=== PATIENT | male | born 1960 | race Hispanic/Latino ===

== ENCOUNTER 2024-01-01 10:30 | Day surgery (SDC) | payer OTHER ==
[2023-12-29 08:48] LABS: Absolute Basophils 0.1 K/uL (0-0.5); Absolute Eosinophils 0.2 K/uL (0-0.5); Absolute Lymphocytes (CBC) 1.2 K/uL (0.7-4.9); Absolute Monocytes 0.7 K/uL (0.1-1.3); Absolute Neutrophil 4.5 K/uL (1.8-8.0); Eosinophils % 3.4 % (0-4.4); Hematocrit 38.1 % (39.6-49.0); Hemoglobin 12.7 g/dL (13.6-17.9); Lymphocytes % 18.2 % (15.3-44.8); MCH 33.5 pg (27.0-35.0); MCHC 33.4 g/dL (32.0-36.0); MCV 100.3 fL (80-100); MPV 8.9 fL (7.6-11.3); Monocytes % 10.4 % (3.3-12.3); Platelets 223 thou/uL (152-406); Red Cell Distribution Width 13.5 % (12.1-15.2)
[2023-12-29 08:52] LABS: PTT, Activated Partial Thromb 53.7 SECONDS (24.3-36.9); Protime INR 2.81
[2023-12-29 08:56] LABS: Anion Gap 7.9 mEq/L (5.0-15.0); Potassium 3.9 mEq/L (3.5-5.1)
[2024-01-01] MEDS ORDERED: NA CHLORIDE 0.9% 500 ML ONE (11:10)
[2024-01-01 11:25] VITALS: TEMP 97.8
[2024-01-01] MEDS ORDERED: MIDAZOLAM HCL 2 MG/2 ML INJ ONE (12:25)
[2024-01-01] MEDS ORDERED: HEPA 1000U/500MLS 2,000 UNIT/1,000 ML BAG IV ONE (12:25)
[2024-01-01] MEDS ORDERED: VERAPAMIL HCL 10 MG/4 ML VIAL IV ONE (12:25)
[2024-01-01] MEDS ORDERED: FENTANYL CITR 100 MCG/2 ML ONE (12:25)
[2024-01-01] MEDS ORDERED: LIDOCAINE 1% 20 ML MDV ONE (12:25)
[2024-01-01] MEDS ORDERED: ATROPINE SULF 1 MG/10 ML SYR IV ONE (12:26)
[2024-01-01] MEDS ORDERED: CLOPIDOGREL 75 MG TABLET ONE (12:26)
[2024-01-01] MEDS ORDERED: TICAGRELOR 90 MG TABLET PO ONE (12:26)
[2024-01-01] MEDS ORDERED: HEPARIN 10,000 UNIT/10 ML VIAL IV ONE (12:26)
[2024-01-01] MEDS ORDERED: HEPARIN 5000 UNIT/ML 1 ML VIAL ONE (12:26)
[2024-01-01] MEDS ORDERED: ASPIRIN 325 MG TAB ONE (12:27)
[2024-01-01] MEDS ORDERED: NALOXONE 0.4 MG/ML VIAL ONE (12:27)
[2024-01-01] MEDS ORDERED: FLUMAZENIL 0.1 MG/ML (5 mL VIAL) IV ONE (12:27)
--- NOTE | 2024-01-01 15:05 | EKG ---
Test Date: 2023-12-29 Test Time: 08:26:34 Premium Note Interest Calculator Clerk: SHAMIKA MEASUREMENT RESULTS: Intervals: Rate: 68 VT: 164 QRSD: 84 QT: 392 QTc: 416 Lester: P: 79 VT: 164 QRS: 53 T: 74 INTERPRETIVE STATEMENTS: Normal sinus rhythm Normal ECG Compared to ECG 11/30/2023 10:37:59 No significant changes Electronically Signed On 01-01-24 14:54:54 CDT by Charli Fletcher
[2024-01-01 17:27] VITALS: BP 142/70; O2SAT 98
--- NOTE | 2024-01-01 20:56 | OP ---
Date of Procedure: 01/01/2024 Surgeon: NEELIMA URBINA Procedures Performed: 1.Left subclavian angiogram. 2.Balloon angioplasty followed by stent placement. I placed initially a 7 x 19 mm stent but migrate d distally, so postdilated it using an 8 x 18 mm balloon and then placed an 8 x 29 mm stent at the ar ea of stenosis with excellent expansion and no complications. Indication: Severe left subclavian stenosis. Access: Right common femoral artery 6-Italian closed with 6-Italian Angio-Seal. Complications: None. Bleeding: Less than 50 mL. Anesthesia: Total sedation time was 1 hour and 15 minutes. Used fentanyl and Versed. Description Of Procedure: After risks, benefits, and alternatives were explained, the patient agreed to the procedure and signed informed consent. The patient was brought into cardiac catheterization laboratory, prepped and draped in usual sterile fashion. Then, I accessed right common femoral arter y using micropuncture kit, ultrasound guidance, and fluoroscopy, placed a 6-Italian [place] sheath. Then, I took an YULY guide and engaged the left subclavian, took standard views and then sent a [place] [employer] wire through it through the area of stenosis into the axillary artery and then exchanged fo r a 6-Italian destination sheath 90 cm and then I took a 7 mm x 40 and did balloon angioplasty. Lesio n expanded very well and then I placed 7 x 19 mm balloon stent, excellent expansion, however, it appe ared to be smaller than the vessel distally, so I decided to go with 8 mm balloon to post dilate. Ho wever, the balloon pushed the stent distally, so the area of stenosis was uncovered, so I placed anot her 8 x 29 mm stent and then I took an 8 x 18 mm balloon and post dilated both stents to a stable con dition. Final angiogram was satisfactory. No complications. Then, I removed the wire and the sheat h and placed a 6-Italian Angio-Seal for closure with good hemostasis. Findings: Severe left subclavian stenosis 90%, status post successful balloon angioplasty and stent placement as above. Plan: Aspirin and Plavix. SR/MODL Voice ID: [id number] Report ID: [id number]
== END 2024-01-01 17:55 | disposition home or self-care (01) ==
LOC: CCL 10:30
PROVIDERS: ATTEND Internal Medicine
DX: I70.8 Atherosclerosis of other arteries (principal); I35.9 Nonrheumatic aortic valve disorder, unspecified; I10 Essential (primary) hypertension; E78.2 Mixed hyperlipidemia; B19.20 Unspecified viral hepatitis C without hepatic coma; Z87.891 Personal history of nicotine dependence; Z79.899 Other long term (current) drug therapy
CPT/HCPCS: 93005; 85025; 80048; 36415; 85610; 85347 ×3; 85730; 37236; 36225; C1893; C1760; G0269; C1725; C1769; J1644; J2001; J2250; J3010; J7040; 99152; 99153; J0461; J2310

== ENCOUNTER 2024-03-31 18:42 | Emergency (ER) | payer OTHER ==
--- OUTSIDE RECORDS SUMMARY | 2024-03-31 18:46 | XMS REPORT | Continuity of Care Document ---
Author Name Unknown Address [address] [facility] [address] [place] [address] [facility] thconnect Address [address] [facility]. [address] [place] [address] Care Team Providers Care Cushion Mat Maker Name Role Phone TUSHAR VILMA M Primary Care Physician Unavailab Vilma Wang Attending Clinician Unavailable TYRON BATISTA Attending Clinician Unavailable BARTOLO HORTON Attending Clinician Unavailable BARTOLO HORTON Attending Clinician Unavailable Tyron Batista MD Attending Clinician [phone] Pob, [facility] Main Attending Clinician Unavailabl e Doctor Unassigned, Chambers Attending Clinician U navailable 2, [facility] Attending Clinician Unavailable Charli Fletcher Attending Clinician Unavailable Radiology Attending Clinician Unavailable RADIOLOGY Attending Clinician Unavailable Betsy Fonseca MD Attending Clinician [phone] BETSY FONSECA Attending Clinician Unavailable El Whelan MD Attending Clinician [phone] TYRON BATISTA Admitting Clinician Unavailable BARTOLO HORTON Admitting Clinician Unavailable Wing Adame Admitting Clinician Unavailable Payers Payer Name Policy Type Policy Number Effective Date Expirati on Date Source [facility] [employer]DS [id number] 2021 00:00:00 Problems Condition Name Condition Details Condition Category Status Onset Date Resolution Date Last Treatment Date Treating Clinician Comments Source 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 Disease Active 3- 00:00: 00 [facility] GI bleed GI bleed Disease Active 07-24 00:00: 00 [facility] Essential hypertensi on Essential hypertensi on Disease Active 2014-07 00:00: 00 [facility] Chest pain at rest Chest pain at rest Disease Active 2014-07 00:00: 00 [facility] History of depression History of depression Disease Active 2014-07 00:00: 00 [facility] Anticoagul ated on Coumadin Anticoagul ated on Coumadin Disease Active 2014-07 00:00: 00 [facility] Bilateral pleural effusion Bilateral pleural effusion Disease Active 2014-07 00:00: 00 [facility] Pericardia l effusion without cardiac tamponade Pericardia l effusion without cardiac tamponade Disease Active 2014-07 00:00: 00 [facility] S/P AVR (aortic valve replacemen t wt [facility] 21mm [place] mechanical prosthesis ) S/P AVR (aortic valve replacemen t [facility] 21mm [place] mechanical prosthesis ) Disease Active 2014-07 00:00: 00 Overview: Formattin g of this note might be different from the original. For h.o. Severe aortic stenosis [facility] Allergies, Adverse Reactions, Alerts Allergy Name Allergy Type Status Severity Reaction(s) Onset Date Inactive Date Treating Clinician Comments Source No Known Allergie s DA Active U 2022-07 00:00: 00 [facility] No Known Allergie s DA Active U 02-12 00:00: 00 [facility] NO KNOWN ALLERGIE S Drug Class Active [facility] Social History Social Habit Start Date Stop Date Quantity Comments Source [facility] of tobacco use Cigarette Smoker [facility] Alcoholic beverage intake 2023-12-06 00:00:00 2023-12-06 00:00:00 3 /d [facility] Cigarettes smoked current (pack per day) - Reported 2023-10-12 00:00:00 2023-10-12 00:00:00 [facility] Cigarette pack-years 2023-10-12 00:00:00 2023-10-12 00:00:00 [facility] Tobacco use and exposure 2023-10-12 00:00:00 2023-10-12 00:00:00 Smokeless tobacco non-user [facility] History of Social function 2023-10-10 00:00:00 2023-10-10 00:00:00 [facility] Alcohol intake 2023-10-10 00:00:00 2023-10-10 00:00:00 3 /d [facility] Exposure to SARS-CoV-2 (event) 2022-04-24 00:00:00 2022-05-04 14:52:00 Not sure [facility] Sex assigned at 1960 00:00:00 1960 00:00:00 [facility] Smoking Status Start Date Stop Date Source Tobacco smoking consumption unknown [facility] Ex-smoker 2023-10-12 00:00:00 2023-10-12 00:00:00 [facility] Smokes tobacco daily 2023-09-05 00:00:00 [facility] Medications Ordered Medication Name Filled Medication Name Start Date Stop Date Current Medication? Ordering Clinician Indication Dosage Frequency Signature (SIG) Comments Components Source amLODIPine 5 mg tablet 10-11 12:34: 39 Yes 5mg Take 1 tablet by mouth in the morning. [facility] tramadol HCl (TRAMADOL ORAL) 10-11 12:34: 39 Yes 50mg Take 50 mg by mouth as needed. [facility] atorvastati n 20 mg tablet 10-11 12:34: 39 Yes 20mg Take 1 tablet by mouth at bedtime. [facility] buPROPion XL 300 mg 24 hr tablet 10-11 12:34: 39 Yes 300mg Take 1 tablet by mouth in the morning. [facility] carvediloL 6.25 mg tablet 10-11 12:34: 39 Yes 6.25mg Take 1 tablet by mouth in the morning and 1 tablet in the evening. Take with meals. [facility] valACYclovi r 500 mg tablet 10-11 12:34: 39 Yes 500mg Take 1 tablet by mouth in the morning. [facility] NaCl 0.9% (NS) injection 6 mL 10-09 15:30: 00 10-09 17:59 :00 No [id number] 6mL [facility] alprostadiL (EDEX) injection 25 mcg 10-09 15:30: 10-09 18:01 :00 No [id number] 25ug [facility] phenylephri ne (VAZCULEP) injection 0.3 mg 10-09 15:30: 10-09 17:59 :00 No [id number] .3mg [facility] phenylephri ne (VAZCULEP) injection 0.3 mg 10-09 15:30: 00 10-09 17:59 :00 No [id number] 300ug 0.3 mg (300 mcg), Intravenou s, ONCE, 1 dose, On Mon10/10/23 at 1030, Routine [facility] iopamidol (ISOVUE 370-500 mL) injection 120 mL 10-01 15:18: 10-01 15:18 :00 No [id number] 120mL 120 mL, Intravenou s, ONCE, 1 dose, On Mon10/02/23 at 1045, Routine [facility] buPROPion XL 300 mg 24 hr tablet 09-25 14:56: 15 Yes 300mg Take 1 tablet by mouth in the morning. [facility] carvediloL 6.25 mg tablet 09-25 14:56: 15 Yes 6.25mg Take 1 tablet by mouth in the morning and 1 tablet in the evening. Take with meals. [facility] valACYclovi r 500 mg tablet 09-25 14:56: 15 Yes 500mg Take 1 tablet by mouth in the morning. [facility] atorvastati n 20 mg tablet 09-25 14:53: 32 Yes 20mg Take 1 tablet by mouth at bedtime. [facility] HYDROcodone -acetaminop hen (NORCO) 10-325 mg tablet 09-25 14:52: 47 09-25 00:00 :00 No 1{tbl} Take 1 Tab by mouth every 6 (six) hours as needed. [facility] ALPRAZolam (XANAX) 2 mg tablet 09-25 14:52: 19 09-25 00:00 :00 No 2mg Take 2 mg by mouth 4 (four) times daily as needed for Anxiety. [facility] iopamidol (ISOVUE 370-500 mL) injection 100 mL 2021-07 17:15: 00 05-09 16:04 :00 No [id number] 100mL 100 mL, Intravenou s, ONCE, 1 dose, On Mon05/09/22 at 1215, Routine [facility] ALPRAZolam (XANAX) 2 mg tablet 2021-07 13:32: 33 Yes 2mg Take 2 mg by mouth 4 (four) times daily as needed for Anxiety. [facility] HYDROcodone -acetaminop hen (NORCO) 10-325 mg tablet 2021-07 13:32: 33 Yes 1{tbl} Take 1 Tab by mouth every 6 (six) hours as needed. [facility] amLODIPine 5 mg tablet 2021-07 13:32: 33 Yes 5mg Take 1 tablet by mouth in the morning. [facility] tramadol HCl (TRAMADOL ORAL) 2021-07 13:32: 33 Yes 50mg Take 50 mg by mouth as needed. [facility] atorvastati n 20 mg tablet 2021-07 13:32: 33 Yes 20mg Take 1 tablet by mouth at bedtime. [facility] LOSARTAN 50 mg tablet 918 00:00: 00 09-25 00:00 :00 No [id number] TAKE 1 TABLET BY MOUTH EVERY DAY [facility] warfarin 5 mg tablet 02-15 00:00: 00 Yes [id number] 00 5mg on Mon. Mon. Sat. Sun. 2.5mg on Mon [facility] warfarin 5 mg tablet 01-30 00:00: 00 02-15 00:00 :00 No [id number] 00 5mg Take 1 tablet by mouth every evening. [facility] VENLAFAXINE XR 150 mg 24 hr capsule 12-03 00:00: 00 09-25 00:00 :00 No [id number] 150mg TAKE 1 CAPSULE BY MOUTH DAILY WITH BREAKFAST. [facility] sildenafil (VIAGRA) 50 mg tablet 11-14 00:00: 00 Yes [id number] 50mg Take 1 tablet by mouth as needed for Other (ed). [facility] cephALEXin 500 mg capsule 11-14 00:00: 00 09-25 00:00 :00 No [id number] 500mg Take 1 capsule by mouth 3 (three) times daily. [facility] ALPRAZolam (XANAX) 2 mg tablet 10-29 19:45: 36 Yes 2mg Take 2 mg by mouth 4 (four) times daily as needed for Anxiety. [facility] HYDROcodone -acetaminop hen (NORCO) 10-325 mg tablet 10-29 19:45: 36 Yes 1{tbl} Take 1 Tab by mouth every 6 (six) hours as needed. [facility] ALPRAZolam (XANAX) 2 mg tablet 10-29 14:45: 36 Yes 2mg Take 2 mg by mouth 4 (four) times daily as needed for Anxiety. [facility] HYDROcodone -acetaminop hen (NORCO) 10-325 mg tablet 10-29 14:45: 36 Yes 1{tbl} Take 1 Tab by mouth every 6 (six) hours as needed. [facility] ARIPiprazol e 2 mg tablet 10-29 00:00: 00 09-25 00:00 :00 No [id number] 2mg Take 1 tablet by mouth daily. [facility] traZODONE 50 mg tablet 10-29 00:00: 00 09-25 00:00 :00 No [id number] 50mg Take 1 tablet by mouth at bedtime. [facility] losartan 50 mg tablet 10-05 00:00: 00 04-02 00:00 :00 No [id number] 50mg Take 1 tablet by mouth daily. [facility] aspirin 81 mg EC tablet 03-10 00:00: 00 Yes 81mg Take 1 Tab by mouth daily. [facility] Immunizations Ordered Immunization Name Filled Immunization Name Date Status Comments Source Pneumococcal Polysaccharide, PPSV23 (PNEUMOVAX) 2015-03-10 00:00:00 Completed [facility] Pneumococcal Polysaccharide, PPSV23 (PNEUMOVAX) 2015-03-10 00:00:00 Completed [facility] Pneumococcal Polysaccharide, PPSV23 (PNEUMOVAX) 2015-03-10 00:00:00 Completed [facility] Pneumococcal Polysaccharide, PPSV23 (PNEUMOVAX) 2015-03-10 00:00:00 Completed [facility] Pneumococcal Polysaccharide, PPSV23 (PNEUMOVAX) 2015-03-10 00:00:00 Completed [facility] Pneumococcal Polysaccharide, PPSV23 (PNEUMOVAX) 2015-03-10 00:00:00 Completed [facility] Pneumococcal Polysaccharide, PPSV23 (PNEUMOVAX) 2015-03-10 00:00:00 Completed [facility] Pneumococcal Polysaccharide, PPSV23 (PNEUMOVAX) 2015-03-10 00:00:00 Completed [facility] Pneumococcal Polysaccharide, PPSV23 (PNEUMOVAX) 2015-03-10 00:00:00 Completed [facility] Pneumococcal Polysaccharide, PPSV23 (PNEUMOVAX) Unknown Completed [facility] Pneumococcal Polysaccharide, PPSV23 (PNEUMOVAX) Unknown Completed [facility] Pneumococcal Polysaccharide, PPSV23 (PNEUMOVAX) Unknown Completed [facility] Pneumococcal Polysaccharide, PPSV23 (PNEUMOVAX) Unknown Completed [facility] Pneumococcal Polysaccharide, PPSV23 (PNEUMOVAX) Unknown Completed [facility] Pneumococcal Polysaccharide, PPSV23 (PNEUMOVAX) Unknown Completed [facility] Pneumococcal Polysaccharide, PPSV23 (PNEUMOVAX) Unknown Completed [facility] Pneumococcal Polysaccharide, PPSV23 (PNEUMOVAX) Unknown Completed [facility] Pneumococcal Polysaccharide, PPSV23 (PNEUMOVAX) Unknown Completed [facility] Pneumococcal Polysaccharide, PPSV23 (PNEUMOVAX) Unknown Completed [facility] Pneumococcal Polysaccharide, PPSV23 (PNEUMOVAX) Unknown Completed [facility] Pneumococcal Polysaccharide, PPSV23 (PNEUMOVAX) Unknown Completed [facility] Pneumococcal Polysaccharide, PPSV23 (PNEUMOVAX) Unknown Completed [facility] Pneumococcal Polysaccharide, PPSV23 (PNEUMOVAX) Unknown Completed [facility] Pneumococcal Polysaccharide, PPSV23 (PNEUMOVAX) Unknown Completed [facility] Pneumococcal Polysaccharide, PPSV23 (PNEUMOVAX) Unknown Completed [facility] Pneumococcal Polysaccharide, PPSV23 (PNEUMOVAX) Unknown Completed [facility] Pneumococcal Polysaccharide, PPSV23 (PNEUMOVAX) Unknown Completed [facility] Pneumococcal Polysaccharide, PPSV23 (PNEUMOVAX) Unknown Completed [facility] Pneumococcal Polysaccharide, PPSV23 (PNEUMOVAX) Unknown Completed [facility] Pneumococcal Polysaccharide, PPSV23 (PNEUMOVAX) Unknown Completed [facility] Pneumococcal Polysaccharide, PPSV23 (PNEUMOVAX) Unknown Completed [facility] Pneumococcal Polysaccharide, PPSV23 (PNEUMOVAX) Unknown Completed [facility] Pneumococcal Polysaccharide, PPSV23 (PNEUMOVAX) Unknown Completed [facility] Pneumococcal Polysaccharide, PPSV23 (PNEUMOVAX) Unknown Completed [facility] Pneumococcal Polysaccharide, PPSV23 (PNEUMOVAX) Unknown Completed [facility] Pneumococcal Polysaccharide, PPSV23 (PNEUMOVAX) Unknown Completed [facility] Pneumococcal Polysaccharide, PPSV23 (PNEUMOVAX) Unknown Completed [facility] Pneumococcal Polysaccharide, PPSV23 (PNEUMOVAX) Unknown Completed [facility] Pneumococcal Polysaccharide, PPSV23 (PNEUMOVAX) Unknown Completed [facility] Pneumococcal Polysaccharide, PPSV23 (PNEUMOVAX) Unknown Completed [facility] Pneumococcal Polysaccharide, PPSV23 (PNEUMOVAX) Unknown Completed [facility] Pneumococcal Polysaccharide, PPSV23 (PNEUMOVAX) Unknown Completed [facility] Pneumococcal Polysaccharide, PPSV23 (PNEUMOVAX) Unknown Completed [facility] Pneumococcal Polysaccharide, PPSV23 (PNEUMOVAX) Unknown Completed [facility] Pneumococcal Polysaccharide, PPSV23 (PNEUMOVAX) Unknown Completed [facility] Pneumococcal Polysaccharide, PPSV23 (PNEUMOVAX) Unknown Completed [facility] Pneumococcal Polysaccharide, PPSV23 (PNEUMOVAX) Unknown Completed [facility] Pneumococcal Polysaccharide, PPSV23 (PNEUMOVAX) Unknown Completed [facility] Pneumococcal Polysaccharide, PPSV23 (PNEUMOVAX) Unknown Completed [facility] Pneumococcal Polysaccharide, PPSV23 (PNEUMOVAX) Unknown Completed [facility] Pneumococcal Polysaccharide, PPSV23 (PNEUMOVAX) Unknown Completed [facility] Pneumococcal Polysaccharide, PPSV23 (PNEUMOVAX) Unknown Completed [facility] Vital Signs Vital Name Observation Time Observation Value Comments S ource Systolic blood pressure 2023-12-06 15:10:00 156 mm[Hg] [facility] Diastolic blood pressure 2023-12-06 15:10:00 75 mm[Hg] [facility] Heart rate 2023-12-06 15:10:00 75 /min [facility] Respiratory rate 2023-12-06 15:10:00 18 /min [facility] Body height 2023-12-06 15:10:00 167.6 cm [facility] Body weight 2023-12-06 15:10:00 69.854 kg [facility] BMI 2023-12-06 15:10:00 24.86 kg/m2 [facility] Oxygen saturation in Arterial blood by Pulse oximetry 2023-12-06 15:10:00 97 /min [facility] Systolic blood pressure 2023-10-10 15:28:00 137 mm[Hg] [facility] Diastolic blood pressure 2023-10-10 15:28:00 79 mm[Hg] [facility] Heart rate 2023-10-10 15:28:00 71 /min [facility] Body height 2023-10-10 14:18:00 167.6 cm [facility] Body weight 2023-10-10 14:18:00 67.268 kg [facility] BMI 2023-10-10 14:18:00 23.94 kg/m2 [facility] Oxygen saturation in Arterial blood by Pulse oximetry 2023-10-10 14:18:00 98 /min [facility] Systolic blood pressure 2023-09-26 19:51:00 139 mm[Hg] [facility] Diastolic blood pressure 2023-09-26 19:51:00 83 mm[Hg] [facility] Heart rate 2023-09-26 19:51:00 68 /min [facility] Respiratory rate 2023-09-26 19:51:00 18 /min [facility] Body height 2023-09-26 19:51:00 167.6 cm [facility] Body weight 2023-09-26 19:51:00 67.586 kg [facility] BMI 2023-09-26 19:51:00 24.05 kg/m2 [facility] Oxygen saturation in Arterial blood by Pulse oximetry 2023-09-26 19:51:00 96 /min [facility] Systolic blood pressure 2023-09-05 15:25:00 116 mm[Hg] [facility] Diastolic blood pressure 2023-09-05 15:25:00 75 mm[Hg] [facility] Heart rate 2023-09-05 15:25:00 86 /min [facility] Body temperature 2023-09-05 15:25:00 37.44 Cinda [facility] Body height 2023-09-05 15:25:00 165.1 cm [facility] Body weight 2023-09-05 15:25:00 68.992 kg [facility] BMI 2023-09-05 15:25:00 25.31 kg/m2 [facility] Oxygen saturation in Arterial blood by Pulse oximetry 2023-09-05 15:25:00 97 /min [facility] Systolic blood pressure 2022-05-04 18:34:00 125 mm[Hg] [facility] Diastolic blood pressure 2022-05-04 18:34:00 76 mm[Hg] [facility] Heart rate 2022-05-04 18:34:00 73 /min [facility] Body temperature 2022-05-04 18:34:00 37.06 [facility] Respiratory rate 2022-05-04 18:34:00 18 /min [facility] Body height 2022-05-04 18:34:00 167.6 cm [facility] Body weight 2022-05-04 18:34:00 68.947 kg [facility] BMI 2022-05-04 18:34:00 24.53 kg/m2 [facility] Oxygen saturation in Arterial blood by Pulse oximetry 2022-05-04 18:34:00 96 /min [facility] Procedures Procedure Date / Time Performed Performing Clinician Source POCT URINALYSIS AUTO 2023-12-06 15:17:00 Bell Batista [facility] NOTICE OF PRIVACY PRACTICES 2023-10-02 14:27:29 Doctor Unassigned, Chambers [facility] CONSENT/REFUSAL FOR DIAGNOSIS AND TREATMENT 2023-10-02 14:27:12 Doctor Unassigned, Chambers [facility] ASSIGNMENT OF BENEFITS 2023-10-02 14:26:58 Docto r Unassigned, Chambers [facility] DISCLOSURE AND CONSENT, MEDICAL AND SURGICAL PROCEDURES 2023-09-28 05:01:00 Doctor Unassigned, Chambers [facility] POCT URINALYSIS AUTO 2023-09-26 19:58:00 Bell Batista [facility] POCT URINALYSIS 2023-09-05 15:39:00 Tyron Batista [facility] CONSENT/REFUSAL FOR DIAGNOSIS AND TREATMENT 2023-09-05 15:11:00 Doctor Unassigned, Chambers [facility] MARIA G,POST-VOID RES,US,NON-IMAGING 2023-09-05 00:00:00 Tyron Batista [facility] ASSIGNMENT OF BENEFITS 2022-05-09 15:18:12 Docto r Unassigned, Chambers [facility] CONSENT/REFUSAL FOR DIAGNOSIS AND TREATMENT 2022-05-09 15:17:55 Doctor Unassigned, Chambers [facility] EXTERNAL PROVIDER - ADC REFERRAL 2022-03-31 05:01:00 Doctor Unassigned, Chambers [facility] PATIENT QUESTIONNAIRE 2019-02-19 05:01:00 Doctor Unassigned, Chambers [facility] Encounters Start Date/Time End Date/Time Encounter Type Admission Type Attending [facility] Care Facility Care Department Encounter ID Source 2024-02-23 14:37:00 [id number] [facility] 2023-10-12 15:42:33 Outpatient R TYRON BATISTA [facility] [id number] [facility] 2022-10-28 09:31:03 Outpatient Vilma Mcbride [facility] [id number] [facility] 2023-12-06 10:00:00 2023-12-06 10:15:00 [facility] [id number] [id number] [id number] [facility] 2023-12-06 10:00:00 2023-12-06 10:00:00 Outpatient R TYRON BATISTA [facility] [id number] [facility] 2023-11-02 00:00:00 2023-11-02 00:00:00 Telephone Alzweri, [facility] [id number] [id number] [facility] 2023-10-19 00:00:00 2023-10-19 00:00:00 [facility] [id number] 350.1.13.10 [id number] [id number] [facility] 2023-10-16 10:58:12 2023-10-16 23:59:00 [id number] 2023-10-16 10:58:12 2023-10-16 23:59:00 Hospital Encounter [facility] [id number] 350.1.13.10 [id number] [id number] [facility] 2023-10-16 12:15:00 2023-10-16 12:30:00 As400 Consultant Visit Pob, [facility] Main Jonathan [facility] [id number] 350.1.13.10 [id number] [id number] [facility] 2023-10-16 12:15:00 2023-10-16 12:15:00 Outpatient R JONATHAN [facility] [id number] [facility] 2023-10-16 00:00:00 2023-10-16 00:00:00 Telephone Jonathan [facility] [id number] 350.1.13.10 [id number] [id number] [facility] 2023-10-11 15:00:00 2023-10-11 15:01:09 [facility] [id number] 2023-10-11 15:00:00 2023-10-11 15:01:09 Office Visit Bartolo Horton [facility] [id number] 350.1.13.10 [id number] [id number] [facility] 2023-10-10 09:30:00 2023-10-10 11:16:40 Outpatient R JONATHAN [facility] [id number] [facility] 2023-10-10 09:30:00 2023-10-10 11:16:40 Office Visit Jonathan [facility] [id number] 350.1.13.10 [id number] [id number] [facility] 2023-10-10 00:00:00 2023-10-10 00:00:00 Telephone Jonathan [facility] [id number] 350.1.13.10 [id number] [id number] [facility] 2023-10-02 09:27:54 2023-10-02 23:59:00 Outpatient R JONATHAN [facility] [id number] [facility] 2023-10-02 09:27:54 2023-10-02 23:59:00 Hospital Encounter Jonathan [facility] [id number] 350.1.13.10 [id number] [id number] [facility] 2023-09-28 00:00:00 2023-09-28 00:00:00 Orders Only Doctor Unassigned, Chambers [facility] 1.2.840.114 350.1.13.10 4.2.7.2.686 [id number] [id number] [facility] 2023-09-28 00:00:00 2023-09-28 00:00:00 Telephone Jonathan [facility] 1.2.840.114 350.1.13.10 4.2.7.2.686 [id number] [facility] 2023-09-26 15:30:00 2023-09-26 16:00:54 Outpatient R [facility]ON[facility]AN [facility] [id number] [facility] 2023-09-26 15:30:00 2023-09-26 16:00:54 Office Visit Jonathan [facility] 1.2.840.114 350.1.13.10 4.2.7.2.686 [id number] [facility] 2023-09-18 00:00:00 2023-09-18 00:00:00 Telephone Jonathan [facility] 1.2.840.114 350.1.13.10 4.2.7.2.686 [id number] [facility] 2023-09-15 11:45:00 2023-09-15 12:00:00 As400 Consultant Visit 2, Adc Lab Jonathan [facility] 1.2.840.114 350.1.13.10 4.2.7.2.686 [id number] [facility] 2023-09-15 11:45:00 2023-09-15 11:45:00 Outpatient R [facility] [id number] [facility] 2023-09-08 00:00:00 2023-09-08 00:00:00 [facility] 1.2.840.114 350.1.13.10 4.2.7.2.686 [id number] [facility] 2023-09-05 09:30:00 2023-09-05 10:09:47 Outpatient R TYRON BATISTA [facility] [id number] [facility] 2023-09-05 09:30:00 2023-09-05 10:09:47 Office Visit Tyron Batista [facility] 1..114 350.1.13.10 4.2.7.2.686 [id number] [facility] 2023-09-05 00:00:00 2023-09-05 00:00:00 Orders Only Doctor Unassigned, Chambers [facility] 1..114 350.1.13.10 4.2.7.2.686 [id number] [facility] 2023-04-17 08:00:00 2023-04-17 09:00:00 Outpatient Charli Fitzpatrick [facility] [id number] [facility] 2022-05-09 10:21:20 2022-05-09 23:59:00 Hospital Encounter Radiology [facility] 1..114 350.1.13.10 4.2.7.2.686 [id number] [facility] 2022-05-09 10:20:53 2022-05-09 10:20:53 Outpatient R RADIOLOGY [facility] [id number] [facility] 2022-05-09 10:20:53 2022-05-09 10:20:53 Hospital Encounter Radiology [facility] 1.0.114 350.1.13.10 4.2.7.2.686 [id number] [facility] 2022-05-04 13:20:00 2022-05-04 13:40:00 Office Visit Betsy Fonseca [facility] 1..114 350.1.13.10 4.2.7.2.686 [id number] [facility] 2022-05-04 13:20:00 2022-05-04 13:20:00 [facility] [id number] [facility] 2022-03-31 00:00:00 2022-03-31 00:00:00 Orders Only Doctor Unassigned, Chambers [facility] 1.0.114 350.1.13.10 4.2.7.2.686 [id number] [facility] 2022-03-30 10:00:00 2022-03-30 10:00:00 [facility] [id number] [facility] 2019-04-02 00:00:00 2019-04-02 00:00:00 [facility] 1..114 350.1.13.10 4.2.7.2.686 [id number] [facility] 2019-03-01 00:00:00 2019-03-01 00:00:00 [facility] 1.840.114 350.1.13.10 4.2.7.2.686 [id number] [facility] 2019-02-19 00:00:00 2019-02-19 00:00:00 Orders Only Doctor Unassigned, Chambers [facility] 1.0.114 350.1.13.10 4.2.7.2.686 [id number] [facility] 2019-02-15 00:00:00 2019-02-15 00:00:00 [facility] 1.2840.114 350.1.13.10 4.2.7.2.686 [id number] [facility] Results Test Description Test Time Test Comments Results Result Co mments Source [facility], [id number] 15:18:00 * Test Item Value Reference Range Interpretation Comme nts POCT U SP GRAV (test code = 3255) 1.020 mg/dl 1.005-1.025 POCT PH U (test code = 3254) 6.0 mg/dl 5-8 POCT U LEUK EST (test code = 3263) negative Negative - Negative POCT U NIT (test code = 3262) negative Negative - Negati ve POCT U PROT (test code = 3259) negative Negative - Negative POCT U GLU (test code = 3256) negative Negative - Negati ve POCT U KETONE (test code = 3258) trace Negative - Negative POCT U UROBILI (test code = 3260) 0.2 mg/dl 0.2-1 POCT U BILI (test code = 3261) negative Negative - Negative POCT U BLD (test code = 3257) small Negative - Negati ve POCT U COLOR (test code = 3266) POCT U APPEAR (test code = 3267) [facility] Urinal[facility], [id number] 19:58:00 * Test Item Value Reference Range Interpretation Comme nts POCT U SP GRAV (test code = 3255) 1.020 mg/dl 1.005-1.025 POCT PH U (test code = 3254) 6.0 mg/dl 5-8 POCT U LEUK EST (test code = 3263) negative Negative - Negative POCT U NIT (test code = 3262) negative Negative - Negati ve POCT U PROT (test code = 3259) negative Negative - Negative POCT U GLU (test code = 3256) negative Negative - Negati ve POCT U KETONE (test code = 3258) negative Negative - Negative POCT U UROBILI (test code = 3260) 0.2 mg/dl 0.2-1 POCT U BILI (test code = 3261) negative Negative - Negative POCT U BLD (test code = 3257) moderate Negative - Negati ve POCT U COLOR (test code = 3266) yellow POCT U APPEAR (test code = 3267) clear [facility], [id number] 19:58:00 * Test Item Value Reference Range Interpretation Comme nts POCT U SP GRAV (test code = 3255) 1.020 mg/dl 1.005-1.025 POCT PH U (test code = 3254) 6.0 mg/dl 5-8 POCT U LEUK EST (test code = 3263) negative Negative - Negative POCT U NIT (test code = 3262) negative Negative - Negati ve POCT U PROT (test code = 3259) negative Negative - Negative POCT U GLU (test code = 3256) negative Negative - Negati ve POCT U KETONE (test code = 3258) negative Negative - Negative POCT U UROBILI (test code = 3260) 0.2 mg/dl 0.2-1 POCT U BILI (test code = 3261) negative Negative - Negative POCT U BLD (test code = 3257) moderate Negative - Negati ve POCT U COLOR (test code = 3266) yellow POCT U APPEAR (test code = 3267) clear [facility] Urinalysis W Specific [id number] 15:40:00* Test Item Value Reference Range Interpretation Comme nts POCT U SP GRAV (test code = 3255) 1.020 mg/dl 1.005-1.025 POCT PH U (test code = 3254) 5.5 mg/dl 5-8 POCT U LEUK EST (test code = 3263) negative Negative - Negative POCT U NIT (test code = 3262) negative Negative - Negati ve POCT U PROT (test code = 3259) negative Negative - Negative POCT U GLU (test code = 3256) negative Negative - Negati ve POCT U KETONE (test code = 3258) negative Negative - Negative POCT U UROBILI (test code = 3260) 0.2 mg/dl 0.2-1 POCT U BILI (test code = 3261) negative Negative - Negative POCT U BLD (test code = 3257) small Negative - Negati ve POCT U COLOR (test code = 3266) yellow POCT U APPEAR (test code = 3267) clear Lab Interpretation (test cod e = 85775-5) Abnormal [facility] Urinalysis W Specific [id number] 15:40:00* Test Item Value Reference Range Interpretation Comme nts POCT U SP GRAV (test code = 3255) 1.020 mg/dl 1.005-1.025 POCT PH U (test code = 3254) 5.5 mg/dl 5-8 POCT U LEUK EST (test code = 3263) negative Negative - Negative POCT U NIT (test code = 3262) negative Negative - Negati ve POCT U PROT (test code = 3259) negative Negative - Negative POCT U GLU (test code = 3256) negative Negative - Negati ve POCT U KETONE (test code = 3258) negative Negative - Negative POCT U UROBILI (test code = 3260) 0.2 mg/dl 0.2-1 POCT U BILI (test code = 3261) negative Negative - Negative POCT U BLD (test code = 3257) small Negative - Negati ve POCT U COLOR (test code = 3266) yellow POCT U APPEAR (test code = 3267) clear Lab Interpretation (test cod e = 06181-4) Abnormal [facility] Urinalysis W Specific [id number] 15:40:00* Test Item Value Reference Range Interpretation Comme nts POCT U SP GRAV (test code = 3255) 1.020 mg/dl 1.005-1.025 POCT PH U (test code = 3254) 5.5 mg/dl 5-8 POCT U LEUK EST (test code = 3263) negative Negative - Negative POCT U NIT (test code = 3262) negative Negative - Negati ve POCT U PROT (test code = 3259) negative Negative - Negative POCT U GLU (test code = 3256) negative Negative - Negati ve POCT U KETONE (test code = 3258) negative Negative - Negative POCT U UROBILI (test code = 3260) 0.2 mg/dl 0.2-1 POCT U BILI (test code = 3261) negative Negative - Negative POCT U BLD (test code = 3257) small Negative - Negati ve POCT U COLOR (test code = 3266) yellow POCT U APPEAR (test code = 3267) clear Lab Interpretation (test cod e = 50962-1) Abnormal [facility] Urinalysis W Specific [id number] 15:40:00* Test Item Value Reference Range Interpretation Comme nts POCT U SP GRAV (test code = 3255) 1.020 mg/dl 1.005-1.025 POCT PH U (test code = 3254) 5.5 mg/dl 5-8 POCT U LEUK EST (test code = 3263) negative Negative - Negative POCT U NIT (test code = 3262) negative Negative - Negati ve POCT U PROT (test code = 3259) negative Negative - Negative POCT U GLU (test code = 3256) negative Negative - Negati ve POCT U KETONE (test code = 3258) negative Negative - Negative POCT U UROBILI (test code = 3260) 0.2 mg/dl 0.2-1 POCT U BILI (test code = 3261) negative Negative - Negative POCT U BLD (test code = 3257) small Negative - Negati ve POCT U COLOR (test code = 3266) yellow POCT U APPEAR (test code = 3267) clear Lab Interpretation (test cod e = 41333-9) Abnormal [facility],POST-VOID RES,US,[id number] 00:00:00* Test Item Value Reference Range Interpretation Comme nts PVR (URINE VOLUME) (test code = 5193) 28 ml 0-100 [facility],POST-VOID RES,US,[id number] 00:00:00* Test Item Value Reference Range Interpretation Comme nts PVR (URINE VOLUME) (test code = 5193) 28 ml 0-100 [facility],POST-VOID RES,US,[id number] 00:00:00* Test Item Value Reference Range Interpretation Comme nts PVR (URINE VOLUME) (test code = 5193) 28 ml 0-100 [facility],POST-VOID RES,US,[id number] 00:00:00* Test Item Value Reference Range Interpretation Comme nts PVR (URINE VOLUME) (test code = 5193) 28 ml 0-100 [facility]- XR CHEST 2 [id number] 16:16:00 [facility] AZLE DARIAN CROOKSName: ANNABELLA CYR : 1960 Sex: MFAX: Charli Sylvester MD [phone] [place]: St: PRE Name: ANNABELLA CYR [facility] Darian Crooks : 1960 Age/S: 63/M [address] [place] [address] Unit #: [id number] Loc: [place] [address] Phys: Charli Fletcher MD Acct: [id number] Dis Date: Status: PRE NJC PHONE #: [phone] Exam Date: 04/17/2023 1316 FAX #:[phone] Reason: PREOP EXAMS: CPT CODE: [id number] XR CHEST 2 V 46114 EXAM: - XR CHEST 2 V CLINICAL HISTORY: PREOP TECHNIQUE: Frontal and Lateral views. COMPARISON: Chest radiograph 05/02/2014 LOCATION: C4 FINDINGS: Sternotomy wires and mediastinal surgical clips are present. Evidence of prior cardiac valve repair. The trachea appears normal. The mediastinum and cardiac silhouette are within normal limits for size. The lungs are clear. No pleural effusions. Visualized soft tissues and osseous structures are grossly unremarkable. IMPRESSION: No acute cardiopulmonary process. at 1616 Reported and signed by: Kris Perera D.O.CC: Charli Fletcher MD Technologist: Chanelle Khan RT(R) Trnscrd Date/Time/By: 04/17/2023 (3674) : By: [email or web address] Orig Print D/T: S: 04/17/2023 (1952) PAGE 1 Signed ReportCBC W/AUTO [id number] 15:09:00* Test Item Value Reference Range Interpretation Comme nts WHITE BLOOD CELL (test code = WBC) 7.1 x10 3/uL 4.5-11.0 N RED BLOOD CELL (test code = RBC) 3.81 x10 6/uL 4.00-5.60 L HEMOGLOBIN (test code = HGB) 12.9 g/dL 12.5-16.9 N HEMATOCRIT (test code = HCT) 40.2 % 37.5-50.7 N MEAN CELL VOLUME (test code = MCV) 105.5 fL 81.0-99.0 H MEAN CELL HGB (test code = MCH) 33.9 pg 27.0-33.0 H MEAN CELL HGB CONCETRATION (test code = MCHC) 32.1 g/dL 33.0-37.0 L RED CELL DISTRIBUTION WIDTH CV (test code = RDW) 14.0 % 11.5-14.5 N RED CELL DISTRIBUTION WIDTH SD (test code = RDW-SD) 54.8 fL 37.0-54.0 H PLATELET COUNT (test code = PLT) 276 x10 3/uL 150-400 N MEAN PLATELET VOLUME (test c ode = MPV) 10.6 fL 7.0-9.0 H NEUTROPHIL % (test code = NT%) 63.8 % 56.0-77.0 N IMMATURE GRANULOCYTE % (test code = IG%) 0.4 % 0.0-2.0 N LYMPHOCYTE % (test code = LY%) 21.9 % 14.0-32.0 N MONOCYTE % (test code = MO%) 10.5 % 4.8-9.0 H EOSINOPHIL % (test code = EO%) 2.3 % 0.3-3.7 N BASOPHIL % (test code = BA%) 1.1 % 0.0-2.0 N NUCLEATED RBC % (test code = NRBC%) 0.0 % 0-0 N NEUTROPHIL # (test code = NT#) 4.53 x10 3/uL 2.0-7.6 N IMMATURE GRANULOCYTE # (test code = IG#) 0.03 x10 3/uL 0.00-0.03 N LYMPHOCYTE # (test code = LY#) 1.56 x10 3/uL 1.0-3.8 N MONOCYTE # (test code = MO#) 0.75 x10 3/uL 0.1-0.8 N EOSINOPHIL # (test code = EO#) 0.16 x10 3/uL 0.0-0.2 N BASOPHIL # (test code = BA#) 0.08 x10 3/uL 0.0-0.2 N NUCLEATED RBC # (test code = NRBC#) 0.00 x10 3/uL 0.0-0.1 N MANUAL DIFF REQUIRED (test c ode = MDIFF) NO RBC [id number] 15:09:00* Test Item Value Reference Range Interpretation Comme nts ANISOCYTOSIS (test code = ANISO) 1+ POLYCHROMASIA (test code = POLC) 1+ MACROCYTOSIS (test code = MACR) 2+ BASIC METABOLIC [id number] 14:08:00* Test Item Value Reference Range Interpretation Comme nts SODIUM (test code = NA) 141 mEq/L 134-147 N POTASSIUM (test code = K) 4.1 mEq/L 3.4-5.0 N CHLORIDE (test code = CL) 105 mEq/L 100-108 N CARBON DIOXIDE (test code = CO2) 29 mEq/l 21-33 N ANION GAP (test code = GAP) 11 0-20 N GLUCOSE (test code = GLU) 82 mg/dL 77-141 N NOTE: NEW NORMAL RANGE BLOOD UREA NITROGEN (test code = BUN) 21 mg/dL 7-25 N NOTE: NEW NORM AL RANGE GLOMERULAR FILTRATION RATE (test code = GFR) 99.4 80-90 H The Glomerular Filtration Rate is a calculated parameterbased on serum Creatinine, patient age and sex. GFR valuesless than 60 mL/min/1.73 square meters are indicative ofChronic Kidney Disease. Values less than 15 mL/min/1.73square meters indicate Kidney failure. The calculation forGFR is based on the CKD-EPI (2020) calculation. This formulais race indifferent and is the recommended formula for GFRby the National Kidney Foundation for Adults.The GFR will not calculate if the sex is unknown or if thepatient's age is <18 years. CREATININE (test code = CREAT) 0.8 mg/dL 0.6-1.3 N CALCIUM (test code = CA) 8.7 mg/dL 8.0-10.5 N PROTHROMBIN [id number] 13:50:00* Test Item Value Reference Range Interpretation Comme nts PROTHROMBIN TIME PATIENT (test code = PTP) 42.4 SECONDS 9.3-12.9 H INTERNATIONAL NORMAL RATIO (test code = INR) 3.9 0.8-1.2 H TARGET INR BY INDICATION Indication INR1. Prophylaxis of venous thrombosis 2.0 - 3.0 (orthopedic surgery), Prophylaxis of venous thrombosis (other than high-risk surgery), Treatment of Deep Vein Thrombosis/Pulmonary Embolism, Prevention of systemic embolism - Tissue heart valves, Acute Myocardial Infarction (to prevent systemic embolism), Valvular heart disease, Atrial Fibrillation, Bileaflet mechanical valve in aortic position.2. Mechanical prosthetic valves (high risk), 2.5 - 3.5 Presence of Lupus Anticoagulant or Antiphospholipid Antibodies, Prevention of systemic embolism - Acute Myocardial Infarction (to prevent recurrent infarct). - DUP EXTRACRANIAL [id number] 14:10:00 [facility] : 1960 Sex: MName: ANNABELLA CYR [facility] [place] : 1960 Age/S: 51 / M [address] [place] [address] Unit #: [id number] Loc: [place] [address] Phys: Marcio Hammer MD Acct: [id number] Dis Date: Status: UNK PHONE #: [phone] Exam Date: 12/12/2011 1409 FAX #: [phone] Reason: ETOH/PAIN EXAMS: CPTCODE: [id number] DUP EXTRACRANIAL YULIA 79825 Bilateral carotid artery ultrasound. Indication: Headache. Pain. Alcohol withdrawal. Comparison: None. Findings: De La Rosa-scale, color Doppler and spectral Doppler of the carotid arteries was performed. Any reported ICA stenoses indirectly reference the distalinternal carotid diameter as the denominator for stenosis measurement, utilizing consensus panel criteria. A mild amount of atherosclerotic plaque formation is seen bilaterally within the carotid arteries and bulbs. The peak systolic velocity of the right common carotid artery is 52 cm/sec. The right ICA peak systolic velocity measures 69 cm/sec. The right IC/CC ratio equals 1.3. The left commoncarotid artery peak systolic velocity is 56 cm/sec. Left ICA peak systolic velocity is measured at 6 4 cm/sec. The left IC/CC ratio equals 1.1. Both vertebral arteries demonstrate antegrade flow. Discussion with the maintenance trainer over a missing left vertebral artery picture. [facility] has informed me that the flow is antegrade and picture was accidentally omitted. A color image is present. Impression: A mild amount of atherosclerotic plaque is noted. No sonographic evidence of hemodynamically significant carotid artery stenosis bilaterally. Electronically Signed by Moiz Perdomo on 12/12/2011 at 1441 Reported and signed by: Jake Perdomo M.D. CC: Marcio Hammer MD Technologist: Coby Titus RDMS(Viral)(BR) Trnscb Date/Time: 12/12/2011 (1441) [id number] Orig Print D/T: S: 12/12/2011 (1960) Probe: PAGE 1 Signed Report- MRI BRAIN WO/W CONT 2011-12-11 16:34:00 [facility] : 1960 Sex: MFAX: Marcio Mendieta MD [phone] [place]: St: UNK Name: ANNABELLA CYR [facility] : 1960 Age/S: 51/M [address] [place] [address] Unit #: [id number] Loc: [place] [address] Phys: Marcio Hammer MD Acct: [id number] Dis Date: Status: UNK PHONE #: [phone] Exam Date: 12/11/2011 1556 FAX #: [phone] Reason: ETOH ABUSE EXAMS: CPT CODE: [id number] MRI BRAIN WO/W CONT 84769 MRI BRAIN WITHOUT AND WITH CONTRAST. HISTORY: Ethanol abuse. Alcohol withdrawal. Hypertension. COMPARISON: MRI head without contrast dated November 02, 2010. TECHNIQUE: Magnevist 12 cc was administered intravenously. FINDINGS: No evidence for acute infarct on diffusion weighted imaging. There is motion artifact. No evidence for intracranial hemorrhage, mass or acute infarct. No focal edema, mass effect or midline shift. No hydrocephalus. De La Rosa-white matter junctions are well differentiated. No evidence for abnormal enhancement on postcontrast imaging. Surrounding bony and soft tissues appear unremarkable. Mild mucosal thickening within the left maxillary sinus. IMPRESSION: 1. No evidence for acute intracranial abnormality. at 2626 Reported and signed by: Sheldon Alfaro M.D. CC: Marcio Hammer MD Technologist: Clint De, RT(R) Trnscrd Date/Time/By: 12/11/2011 (3458) : By: KristenEFRA/KristenTAOrig Print D/T: S: 12/11/2011 (4378) PAGE 1 Signed Report- CT ABD PELVIS W/[id number] 14:03:00 [facility] : 1960 Sex: MName: ANNABELLA CYR [facility] : 1960 Age/S: 51 / M [address] [place] [address] Blvd Unit #: [id number] Loc: [place] [address] Phys: Marcio Hammer MD Acct: [id number] Dis Date: Status: UNKPHONE #: [phone] Exam Date: 12/10/2011 1340 FAX #: [phone] Reason: ETOH/PAIN EXAMS: CPT CODE: [id number] CT ABD PELVIS W/CONT 35422 CT ABDOMEN AND PELVIS WITH CONTRAST. INDICATION: Pain. Alcohol withdrawal. COMPARISON: 11/02/2010 CT. TECHNIQUE: Helical axial images were obtained from lung bases through the level of the pubic symphysis at 5 mm axial slice collimation with coronal reconstructions after administration of 100 mL Isovue-300 IV contrast and 10 mL Gastrografin diluted with water orally. FINDINGS: Bibasilar atelectasis present. There is no free air or free fluid in the abdomen or pelvis. Atherosclerotic calcification seen of abdominal aorta. Liver, gallbladder, spleen, pancreas, bilateral adrenal glands, and bilateral kidneys all appear normal. There are no abnormally d ilated small or large bowel loops identified. The appendix is normal. Diverticulosis is present. Small amount of fluid present in the bladder. Degenerative change seen in the spine. IMPRESSION: 1. Diverticulosis. 2. Bibasilar atelectasis. at 142 Reported and signed by: Jake Perdomo M.D. CC: Marcio Hammer MD Technologist:RT Riley(R) CTDI: DLP: Trnscb Date/Time: 12/11/2011 (6293) pastor.BSB/pastor.BSB Orig Print D/T: S: 12/11/2011 (2054) PAGE 1 Signed Report- XR CHEST 1 [id number] 09:23:00 [facility] : 1960 Sex: M FAX: Marcio Mendieta MD [phone] [place]: St: ASHK Name: ANNABELLA CYR [facility] : 1960 Age/S: 51/M [address] [place] [address] Unit #: [id number] Loc: [place] [address] Phys: Marcio Hammer MD Acct: [id number] Dis Date: Status: UNK PHONE #: [phone] Exam Date: 12/10/2011 09 FAX #: [phone] Reason: ETOH EXAMS: CPT CODE: [id number] XR CHEST 1 V 31627 SINGLE PORTABLE AP CHEST: INDICATION: Alcohol withdrawal. COMPARISON: 11/01/2010 radiograph. FINDINGS: Mediastinal shadows limited by lordotic projection appearing stable from the prior study. The cardiac silhouette is normal in size. The lungs are well-inflated and appear clear. No pleural effusions. No suspicious osseous abnormality is identified. IMPRESSION: Stable chest. No evidence for acute cardiopulmonary disease. at 1136 Reported and signed by: Jake Perdomo M.D. CC: Marcio Hammer MD Technologist: RT Ainsley(R)(CT) Trnscrd Date/Time/By: 0 12/10/2011 (0928) : By: KristenTJJustin/KristenTJOrig Print D/T: S: 12/10/2011 (1141) PAGE 1 Signed Report- MRI L-SPINE W/O [id number] 18:36:00 [facility] : 1960 Sex: M FAX: Self Referred [place]: St: UNK FAX: Marcio Mendieta MD [phone] Name: ANNABELLA CYR [facility] [place] :1960 Age/S: 50/M [address] [place] [address] Unit #: [id number] Loc: [facility] [place] [address] Phys: Marcio Hammer MD Acct: [id number] Dis Date: Status: UNK PHONE #: [phone] Exam Date: 11/02/20101754 FAX #: [phone] Reason: ALCOHOL ABUSE,BACK PAIN EXAMS: CPT CODE: [id number] MRI L-SPINE W/O CONT 50259 EXAMINATION: MRI lumbar spine without contrast. HISTORY: Alcohol abuse, back pain and chest pain. COMPARISON: Lumbar spine radiographs dated November 02, 2010. FINDINGS: Five mmh-cqn-aiavsxp lumbar type vertebra are identified radiographically. There is normal alignment of lumbar spine. No acute bony abnormality or bony edema. The levels of T11-12, T12-L1, L1-2 appear normal. No disc desiccation or loss of disc height. No disc bulges or herniations. No central canal or foraminal narrowing. L2-3: There is mild disc desiccation without significant loss of height. Small implant osteoph ytes are present. Minimal annular disc bulge is present. Midline sagittal imaging demonstrates discbulge measuring 2 to 3 mm with mild central canal narrowing. Mild disc bulge extends into the foramina with mild foraminal narrowing, slightly more so on the right side. L3-4: There is mild disc warren ccation without significant loss of disc height. Small endplate osteophytes are present. Mild annular disc bulges again demonstrated measuring 2 to 3 mm on midline sagittal image. There is mild central canal narrowing. Disc bulge extends into the anterior/inferior foramina bilaterally. There is moderate right foraminal narrowing and minimal left foraminal narrowing. This is best seen on sagittal imaging. L4-5: Mild disc desiccation without loss of disc height. Small end plate osteophytes are present. Minimal annular disc bulge measures 3 mm on midline sagittal image. Disc bulge extends into the anterior/inferior foramina bilaterally. There is moderate left foraminal narrowing with mild to moderate right foraminal narrowing. Mild left facet degenerative changes identified. L5- S1: Mild facet degenerative change. Minimal disc bulge to a lesser extent than more superior levels. There is minimal disc desiccation without loss of height. No significant central canal or foraminal narrowing. The distal spinal cord and cauda equina appears normal. Surrounding soft tissues appear unremarkable. IMPRESSION: Multilevel mild to moderate degenerative disc disease within the lower lumbar spine and lumbar sacral junction with small PAGE 1 Signed Report (CONTINUED) FAX: Self Referred [place]: St: [facility] FAX: Marcio Mendieta MD [phone] Name: ANNABELLA CYR [facility] : 1960 Age/S: 50/M [address] [place] [address] Unit #: [id number] Loc: [place] [address] Phys: Marcio Hammer MD Acct: [id number] Dis Date: Status: [facility] PHONE #: [phone] Exam Date: 11/02/2010 175 FAX #: [phone] Reason: ALCOHOL ABUSE,BACK PAIN EXAMS: CPT CODE: [id number] MRI L-SPINE W/O CONT 15492 (Continued) discbulges, mild to moderate central canal and foraminal narrowing as described above. at 1846 Reported and signed by: MichaelS. Dominic M.D. CC: Self Referred; Marcio Hammer MD Technologist: KYA Pardo) Trnpiter [place] te/Time/By: 11/02/2010 (184) : By: Kiet/Yaya Jacobson D/T: S: 11/02/2010 (184) PAGE 2 Signed Report- MRI BRAIN W/O [id number] 18:01:00 [facility] DARIAN CROOKSName: ANNABELLA CYR : 1960 Sex: MFAX: Self Referred [place]: St: [facility] FAX: Y Marcio Hammer MD [phone] Name: ANNABELLA CYR [facility] Darian Crooks : 1960 Age/S: 50/M [address] [place] [address] Unit #: [id number] Loc: [place] [address] Phys: Marcio Hammer MD Acct: [id number] Dis Date: Status: UNK PHONE #: [phone] Exam Date: 11/02/2010 1754 FAX #: [phone] Reason: ALCOHOL ABUSE,MCDANIEL EXAMS: CPT CODE: [id number] MRI BRAIN W/O CONT 51178 EXAMINATION: MRI brain without contrast. HISTORY: Alcohol abuse, headache and chest pain. COMPARISON: None. FINDINGS: No evidence for acute infarct on diffusion weighted imaging. No evidence for abnormal intracranial fluid collection, hemorrhage or mass. No focal edema, mass effect or midline shift. No hydrocephalus. De La Rosa-white matter junctions are well differentiated. Central vascular flowvoids appear normal. Surrounding bony and soft tissues appear otherwise unremarkable. IMPRESSION: No evidence for acute abnormality. Electronically Signed by Moiz Alfaro on 10/15 at 1804 Reported and signed by: Sheldon Alfaro M.D. CC: Self Referred; Marcio Hammer MD Technologist: RT Edvin(R) Trnscrd Date/Time/By: 11/02/2010 (078) : By: KristenJLJoshua/KristenJLOrig Print D/T: S: 11/02/2010 (340) PAGE 1 Signed Report- CT ABD PELVIS [id number] 14:08:00 [facility] : 1960 Sex: MName: ANNABELLA CYR [facility] : 1960 Age/S: 50 / M [address] [place] [address] Unit #: [id number] Loc: [place] [address] Phys: Marcio Hammer MD Acct: [id number] Dis Date: Status: UNK PHONE #: [phone] Exam Date: 11/02/2010 1346 FAX #: [phone] Reason: ALCOHOL ABUSE EXAMS:CPT CODE: [id number] CT ABD PELVIS W/CONT 86296 CT ABDOMEN AND PELVIS WITH CONTRAST. INDICATION: Bloating. Alcohol abuse. COMPARISON: No comparison studies are available. TECHNIQUE: Helical axial images were obtained from lung bases through the level of the pubic symphysis at 5 mm axial slice collimation with coronal reconstructions after administration of 100 mL Isovue-300 IV contrast and 10 mL Gastrografin diluted with water orally. FINDINGS: Dependent atelectasis seen in the lung bases. Thereis no free air or free fluid in the abdomen or pelvis. Normal caliber abdominal aorta demonstrates mild plaque formation. The liver, gallbladder, spleen, pancreas, bilateral adrenal glands, and bilateral kidneys all appear normal. No abnormally dilated small or large bowel loops are seen. The appendix is normal. Colonic diverticulosis is present. Bladder is filled with fluid. Degenerative changesseen in the spine. IMPRESSION: 1. Diverticulosis. 2. Bibasilar atelectasis. at 1418 Reported and signed by: Jake Perdomo M.D.CC: Self Referred; Marcio Hammer MD Technologist:Moi Bradford, RT(R)(CT) CTDI: DLP: Trnscb Date/Time: 11/02/2010 (9262) Cheng/Cheng Orig Print D/T: S: 11/02/2010 (2719) PAGE 1 Signed Report- NM MYOCRD SPECT R/S [id number] 13:55:00 [facility] : 1960 Sex: MFAX: Self Referred [place]: [place] St: UNK FAX: Marcio Mendieta MD [phone] Name: ANNABELLA CYR [facility] : 1960 Age/S: 50/M [address] [place] [address] Blvd Unit #: [id number] Loc: [place] [address] Phys: Marcio Hammer MD Acct: [id number] Dis Date: Status: [place] PHONE #: [phone] Exam Date: 11/02/2010 1333 FAX #: [phone] Reason: CHEST PAIN EXAMS: CPT CODE: [id number] NM MYOCRD SPECT R/S MULT 57204 NUCLEAR MEDICINE STRESS MYOCARDIAL EXAM. HISTORY: Chest pain. RADIOPHARMACEUTICAL: 12 mCi technetium 99m Myoview at rest, 33 mCi at stress. FINDINGS: This is a Lexiscan stress examination, which was administered per protocol. Stress ECG results were not provided. Analysis of the SPECT myocardial images in stress and redistribution show a fixed apical defect. A smaller defect in the lateral wall is noted but there is adjacent bowel activity. There is no left ventricular dilatation with stress. Calculated left ventricular ejection fraction is 53% with mild global hypokinesis. IMPRESSION: 1.Fixed apical defect without focal wall motion abnormalities likely artifactual. 2. No definitive focus of stress-induced ischemia identified. Extensive adjacent gut activity limits evaluation of the inferolateral wall. 3. Calculated LVEF is 53%, without focal wall motion abnormality. at 6327 Reported and signed by: Sean Real M.D. CC: Self Referred; Marcio Hammer MD Technologist: Sheldon Gonzalez RT(NM); RT Maciej(N) Trnscrd Date/Time/By: 11/02/2010 (1406) : By: Guero/MaritzaOrig Print D/T: S: 11/02/2010 (8985) PAGE 1 Signed Report- XR L-SPINE 4+[id number] 10:06:00 [facility] : 1960 Sex: MFAX: Self Referred [place]: St: [facility] FAX: Marcio Mendieta MD [phone] Name: ANNABELLA CYR [facility] Darian Crooks : 1960 Age/S: 50/M [address] [place] [address] Unit #: [id number] Loc: [place] [address] Phys: Marcio Hammer MD Acct: [id number] Dis Date: Status: [place] PHONE #: [phone] Exam Date: 11/02/2010954 FAX #: [phone] Reason: PAIN EXAMS: CPT CODE: [id number] XR L-SPINE 4+VIEWS 76952 FOUR VIEW LUMBAR SPINE: HISTORY: Pain. No comparisons. FINDINGS: Anterior osteophytes are seen at multiple levels. Vertebral body height and intervertebral disc space height is maintained. There is mild low l umbar facet degeneration. IMPRESSION: 1. Mild degenerative changes as described. 2. No acute abnormality. at 1028 Reported and signed by: Sean Real M.D. CC: Self Referred; Marcio Hammer MD Technologist: Beverley Garrison, RT(R), RTT; STUDENT Trnscrd Date/Time/By: 11/02/2010 (1005) : By: Keisha/Allen Print D/T: S: 11/02/2010 (1381) PAGE 1 Signed Report- XR CHEST 1 [id number] 08:04:00[facility] : 1960 Sex: MFAX: Pb Lucio III [place]: [place] St: UNK Name: ANNABELLA CYR [facility] : 1960 Age/S:50/M [address] Unit #: [id number] Loc: [place] [address] Phys: Pb Betancur III, MD Acct: [id number] Dis Date: Status: UNK PHONE #: Exam Date: 11/01/2010 0758 FAX #: Reason: CHEST PAIN EXAMS: CPT CODE: [id number] XR CHEST 1 V 16677 PORTABLE CHEST AP: HISTORY: Chest pain. COMPARISON: None. FINDINGS: Portable frontal view of the chest was obtained. The lungs are clear bilaterally. The cardiomediastinal silhouette and pulmonary vasculature are unremarkable. The partially visualized upper abdomen is unremarkable. IMPRESSION: No acute disease in the chest. at 0804 Reported and signed by: Brent Anderson M.D. CC: Pb Betancur III, MD Technologist: Jacklyn Lawson RT(R) Bre Date/Time/By: 11/01/2010 (803) : By: [email or web address] Orig Print D/T: S: 11/01/2010 (809) PAGE 1 Signed Report Notes Date/Time Note Provider Source 2023-11-03 10:14:04 Scheduled appt with pt for 12/05 Shona Ravi [facility] 2023-11-02 16:22:03 RTC after 12/05/2023 can OB [facility] 2023-11-02 13:37:25 Patient notified of results/recommendations, understanding was verbalized via teach back. Patient states Dr Fletcher's office discussed instructions with him and they will be able to give Lovenox injections. Patient states he is scheduled for a stent placement on 12/05/23 and would like to have the IPP placement sometime after that. Will route to Dr Batista for notification. T [facility] 2023-11-02 13:32:50 Images from the original note were not included. [facility] 2023-11-02 13:32:29 Images from the original note were not included. T Amrita Haskins RN [facility] 2023-11-02 12:16:27 Received forms from [facility] and it was scanned into patients chart for review. Myles Sadler [facility] 2023-10-30 16:28:12 Cardiac clearance request sent to Dr Fletcher's office at this time. [facility] 2023-10-19 14:37:19 US was obtained for concern of possible gallbladder polyp US shows no polyp. Likely CT was showing a fold on the gallbladder. I called Mr. Cyr and discussed this finding. He can followup in clinic with me as needed, but since he has no abdominal pain - we can cancel is clinic appt in Mar. CLARISSA-SURGERY STAFF [facility] 2023-10-17 09:28:59 Annabella Cyr is a 63 year old male pt is calling staling that he is not able to see his cardiac rehabilitation specialist until 10/26/2023 for surgery clearance will have to reschedule surgery. Please contact at [phone] (home) [facility] 2023-10-16 14:27:31 I contacted cardiac rehabilitation specialist to see appointment can be expedited [facility] 2023-10-16 14:02:45 Routing to provider for review. Dora Robb RN [facility] 2023-10-16 12:15:00 Pt wait 30 mins, needed to reschedule. 3 pts were in line before pt was called. Only one steam clothes press operator available. Tiana Loja 10/16/2023 11:33 AM Tiana Loja [facility] 2023-10-16 11:55:42 Annabella Cyr is a 63 year old male pt is calling staling that he is not able to see his cardiac rehabilitation specialist until 10/26/2023 for surgery clearance will have to reschedule surgery. Please contact at [phone] (home) Enma Mauro [facility] 2023-10-16 11:39:[address] Fletcher office, they stated patient needed to be seen in order to fill out cardiac clearance. Patient notified. Will call back if he's is able to get in today or tomorrow morning. Chery Ray MA [facility] 2023-10-13 14:57:[address] Britt office to follow up on cardiac clearance. Office is closed today and will re open on Monday. [facility] 2023-10-13 14:56:08 Patient notified of results/recommendations, understanding was verbalized via teach back. [facility] 2023-10-12 13:05:39 Addended by: AMRITA HASKINS RN on: 10/12/2023 01:05 PM Modules accepted: Orders [facility] 2023-10-12 13:04:48 Attempted to contact patient with no answer, Voicemail left at this time with clinic phone number and instructed patient to return call. Patient needs to report to lab to complete urine culture 10/13/23. [facility] 2023-10-12 11:39:50 IPP, I Place case request Needs Ucx please and pre op instructions if not done already Thanks [facility] 2023-10-12 11:39:12 Addended by: TYRON BATISTA on: 10/12/2023 11:39 AM Modules accepted: Orders [facility] 2023-10-12 09:14:06 Form updated and re-faxed to Dr Fletcher's office at this time. Amrita Haskins RN [facility] 2023-10-12 08:56:41 Images from the original note were not included. Dr. Fletcher's office faxed back cardiac clearance request asking what procedure is being done. Mary Travis [facility] 2023-10-10 11:26:25 Cardiac clearance request faxed to Dr Fletcher. FAX # [phone] . Patient states he is not currently taking asa 81mg. T Amrita Haskins RN [facility] 2023-10-02 11:22:20 Attempted to contact patient, no answer. Unable to leave VM, Recording states " please try your call again later " Chery Ray MA [facility] 2023-09-29 13:39:39 Call placed to patient. No answer, unable to leave VM. Ena Bautista LVN [facility] 2023-09-28 14:22:35 Patient returning call to review lab results. Please assist. Nicole Sher [facility] 2023-09-20 09:34:40 3rd attempt to contact patient with no answer, unable to leave a voicemail at this time. Letter mailed. [employer] WORK[employer] Amrita Haskins RN [facility] 2023-09-18 13:34:41 2nd attempt to contact patient with no answer, unable to leave voicemail at this time. [employer] WORK[employer] [facility] 2023-09-18 10:10:49 Images from the original note were not included. Amrita Haskins RN 09/18/2023 10:10 AM [employer]USEMENT PARK WORKER Back to Top Attempted to contact patient with no answer, unable to leave voicemail. Telephone encounter created Tyron Batista MD 09/17/2023 1:17 AM [employer]MENT [employer]ARK WORKER No urine infection Mild elevated liver enzymes, follow up with PCP PSA within normal limits for age group Other results within normal limits Patient Communication [employer] WORK[employer] [facility] 2023-09-15 11:45:00 Images from the original note were not included. Venipuncture collection performed by clean technique on the right forearm(s). Total of 1 attempts were made. Slight pressure and a bandage/dressing were applied to the site(s). The patient experienced no complications. The following specimens were processed according to instructions and sent to [facility] laboratories per lab order on 09/15/2023 : LT BLUE SST 1 RED LAV 1 PPT DK GREEN (LiHep) DK GREEN (SodH) [place] DK BLUE (K2) DK BLUE (S) ACD Blood Culture NIPT/NTD Patient has been identified by and name and was provided with cup, antiseptic towelette, and clean catch instructions. 1 urine specimen(s) sent. Unpreserved Urine Culture 1 Aptima tube Other urine [facility] 2023-04-17 13:51:00 [id number] [place] [address] PATIENT NAME: ANNABELLA CYR ADMIT DATE: ACCOUNT NO: [id number] ROOM NO: AGE: 63 REPORT TYPE: eELECTROCARDIOGRAM REPORT SEX: M ADMITTING PHYSICIAN: ATTENDING PHYSICIAN:Charli Fletcher MD Order: [id number] Test Reason : PREOP Test Date/Time Stamp: MonApr 17 2023 13:51:22 Blood Pressure : / mmHG Vent. Rate : 067 BPM Atrial Rate : 067 BPM P-R Int : 146 ms QRS Dur : 082 ms QT Int : 412 ms P-R-T Axes : 068 061 003 degrees QTc Int : 435 ms Normal sinus rhythm Voltage criteria for left ventricular hypertrophy Nonspecific ST and T wave abnormality Abnormal ECG PRE_OP Confirmed by RAMAKRISHNA MICHAEL MD ([id number]) on 04/17/2023 3:25:21 PM Referred By: Charli Fletcher Confirmed by:RAMAKRISHNA MICHAEL MD at 2972 PATIENT NAME: ANNABELLA CYR [facility]
[2024-03-31] MEDS ORDERED: LIDOCAINE 1% MPF 5 ML VIAL ONE (19:16)
[2024-03-31] MEDS ORDERED: CEFAZOLIN SODIUM 1 GM/VIAL ONE (19:17)
--- NOTE | 2024-03-31 20:05 | RAD REPORT ---
EXAM: 3 views of the left hand COMPARISON: None HISTORY: Hand pain FINDINGS: Bones: No acute fracture identified. Alignment:No significant malalignment. Degenerative changes:None significant. Other: n/a IMPRESSION: No evidence of acute osseous abnormality involving the imaged hand. No radiopaque foreign body.
--- NOTE | 2024-03-31 20:13 | EDPHYS ---
Physician Documentation [facility] Name: Juan J Cyr Age: 64 yrs Sex: Male : 1960 Arrival Date: 03/31/2024 Time: 18:42 Bed 15 Private MD: ED Physician Elliot Hagan HPI: 03/31 20:13 This 64 yrs old Male presents to ER via Ambulatory with complaints of rt Laceration. 20:13 Patient presents to the ED with a laceration to the left hand. Patient is on Plavix, rt Coumadin causing worsening bleeding. The patient reports that he is unable to move his thumb. Denies other acute complaints at this time, symptoms are moderate in severity, no other aggravating or alleviating factors.. Historical: - Allergies: 19:08 No Known Allergies; tl4 - Home Meds: 19:08 Warfarin Oral [Active]; clopidogrel oral [Active]; tl4 - PSHx: 19:08 aortic valve replacement; tl4 - Immunization history:: Last tetanus immunization: up to date. - Infectious Disease History:: Denies. - Social history:: Smoking status: Patient denies any tobacco usage or history of. - Family history:: not pertinent. ROS: 20:13 Constitutional: Negative for fever, chills, and weight loss, Cardiovascular: Negative rt for chest pain, palpitations, and edema, Respiratory: Negative for shortness of breath, cough, wheezing, and pleuritic chest pain, Abdomen/GI: Negative for abdominal pain, nausea, vomiting, diarrhea, and constipation, Neuro: Negative for headache, weakness, numbness, tingling, and seizure, 20:13 MS/extremity: Positive for laceration, Negative for deformity, Exam: 20:13 Constitutional: This is a well developed, well nourished patient who is awake, alert, rt and in no acute distress. Head/Face: Normocephalic, atraumatic. Chest/axilla: Normal chest wall appearance and motion. Nontender with no deformity. No lesions are appreciated. Cardiovascular: Regular rate and rhythm with a normal S1 and S2. No gallops, murmurs, or rubs. Normal PMI, no JVD. No pulse deficits. Respiratory: Lungs have equal breath sounds bilaterally, clear to auscultation and percussion. No rales, rhonchi or wheezes noted. No increased work of breathing, no retractions or nasal flaring. Abdomen/GI: Soft, non-tender, with normal bowel sounds. No distension or tympany. No guarding or rebound. No evidence of tenderness throughout. 20:13 Musculoskeletal/extremity: 2 cm laceration to the extensor surface of the left MCP, obvious tendon laceration, no foreign bodies identified, patient is unable to extend the thumb.. Vital Signs: 19:02 BP 181 / 87; Pulse 77; Resp 18; Temp 98.3(TE); Pulse Ox 99% on R/A; Weight 68.04 kg; tl4 Height 5 ft. 6 in. ; 19:27 BP 173 / 89; Pulse 77; Resp 17; Temp 98(O); Pulse Ox 99% on R/A; rg5 19:02 Body Mass Index 24.21 (68.04 kg, 167.64 cm) tl4 Laceration: 20:13 Wound Repair of 2cm ( 0.8in ) tendon involved laceration to dorsal aspect of proximal rt phalanx of left thumb. Linear shaped.. Neuro:Intact distal to wound.. Vascular:Intact distal to wound. Tendon:Non-functional distal to wound. Anesthesia: Local anesthetic administered with 2 mls of 1% lidocaine. Wound prep: Copious irrigation. Skin closed with 4 3-0 Prolene using simple sutures and sterile technique. Dressed with non-adherent dressing. Patient tolerated well. MDM: 18:52 Patient medically screened. kb 20:13 Differential Diagnosis Laceration, tendon laceration. Data reviewed: vital signs, rt nurses notes, radiologic studies. Independent interpretation of the following test(s) in the Emergency Department X-Ray: My interpretation is No fracture seen on my interpretation of x-ray images. Care significantly affected by the following chronic conditions: Mechanical heart valve on Coumadin. ED course: Patient had a brisk capillary ooze from the laceration, no pulsatile arterial bleed. Sutures were placed for hemostasis purposes only. Only minimal oozing from suture sites following this. Patient was placed in a thumb spica splint by RN. I discussed with handoff coordinator, arrange for outpatient follow-up tomorrow for likely surgical repair. Patient understands that the tendon is involved and was not repaired today. Patient will follow-up tomorrow as instructed.. 03/31 18:59 Order name: Hand Left 3 View XRAY; Complete Time: 20:07 kb 03/31 19:13 Order name: Dressing - Wound; Complete Time: 19:27 rt 03/31 19:13 Order name: Gloves, Sterile; Complete Time: 19:27 rt 03/31 19:13 Order name: Setup Suture Tray; Complete Time: 19:27 rt Administered Medications: 19:37 Drug: CeFAZolin IM 1 grams IM once Route: IM; Site: right gluteus; rg5 20:14 Follow up: Response: No adverse reaction rg5 19:37 Drug: Lidocaine Infiltration (1 %) 5 ml 5 ml Infiltration once; to bedside {Note: rg5 injected by provider.} Volume: 5 ml; Route: Infiltration; Disposition Summary: 03/31/24 20:12 Discharge Ordered Notes: Location: Home rt Problem: new rt Symptoms: have improved rt Condition: Stable rt Diagnosis - Laceration to left thumb with complete extensor tendon laceration rt Followup: rt - With: Private Physician - When: Tomorrow - Reason: Discharge Instructions: - Discharge Summary Sheet rt - Laceration Care, Adult rt - Tendon Repair rt Forms: - Medication Reconciliation Form rt - Antibiotic Education rt - Prescription Opioid Use rt - Patient Portal Instructions rt - Leadership Thank You Letter rt Signatures: Dispatcher [employer] Ashley Vega, CARBON ACCOUNTANT-C CARBON ACCOUNTANT-Elliot Hines MD MD rt Han Rolle RN RN tl4 Omar Damian RN RN rg5
--- NOTE | 2024-03-31 20:13 | ER ---
Nurse's Notes [facility] Name: Juan J Cyr Age: 64 yrs Sex: Male : 1960 Arrival Date: 03/31/2024 Time: 18:42 Bed 15 Private MD: Diagnosis: Laceration to left thumb with complete extensor tendon laceration Presentation: 03/31 19:02 Chief complaint: Patient states: Pt states he lacerated the base of his left thumb on tl4 unknown metal approx 30 min ago. Pt has noted bleeding despite pressure dressing. Pt states he is unable to move his thumb like normal, decreased range of motion noted. +sensation. Coronavirus screen: At this time, the client does not indicate any symptoms associated with coronavirus-19. Ebola Screen: No symptoms or risks identified at this time. Complicating Factors: There are no complicating factors for this patient. Initial Sepsis Screen: Does the patient meet any 2 criteria? No. Patient's initial sepsis screen is negative. Does the patient have a suspected source of infection? No. Patient's initial sepsis screen is negative. Risk Assessment: Do you want to hurt yourself or someone else? Patient reports no desire to harm self or others. Onset of symptoms was March 31, 2024 at 18:30. 19:02 Method Of Arrival: Ambulatory tl4 19:02 Acuity: ALEKSANDAR 3 tl4 Triage Assessment: 19:09 General: Appears in no apparent distress. Behavior is calm, cooperative. Pain: tl4 Complains of pain in left hand. EENT: No signs and/or symptoms were reported regarding the EENT system. Neuro: Level of Consciousness is awake, alert, obeys commands, Oriented to person, place, time, situation. Cardiovascular: Capillary refill < 3 seconds Patient's skin is warm and dry. Respiratory: Airway is patent Respiratory effort is even, unlabored, Respiratory pattern is regular, symmetrical. GI: No signs and/or symptoms were reported involving the gastrointestinal system. : No signs and/or symptoms were reported regarding the genitourinary system. Derm: Wound noted left thumb Wound is laceration to base of left thumb. Injury Description: Laceration sustained to left thumb. Historical: - Allergies: 19:08 No Known Allergies; tl4 - Home Meds: 19:08 Warfarin Oral [Active]; clopidogrel oral [Active]; tl4 - PSHx: 19:08 aortic valve replacement; tl4 - Immunization history:: Last tetanus immunization: up to date. - Infectious Disease History:: Denies. - Social history:: Smoking status: Patient denies any tobacco usage or history of. - Family history:: not pertinent. Screenin:10 [facility] ED Fall Risk Assessment (Adult) History of falling in the last 3 months, rg5 including since admission No falls in past 3 months (0 pts) Confusion or Disorientation No (0 pts) Intoxicated or Sedated No (0 pts) Impaired Gait No (0 pts) Mobility Assist Device Used No (0 pt) Altered Elimination No (0 pt) Score/Fall Risk Level 0 - 2 = Low Risk Oriented to surroundings, Maintained a safe environment, Hourly rounding (assess needs \T\ fall precautionary measures) done. Abuse screen: Denies threats or abuse. Nutritional screening: No deficits noted. Tuberculosis screening: No symptoms or risk factors identified. Assessment: 19:10 General: Appears in no apparent distress. Behavior is calm, cooperative, appropriate rg5 for age. Pain: Complains of pain in dorsal aspect of proximal phalanx of left thumb Pain currently is 9 out of 10 on a pain scale. Quality of pain is described as aching. Neuro: Level of Consciousness is awake, alert, obeys commands, Oriented to person, place, time. 19:10 Cardiovascular: Denies chest pain, Heart tones S1 S2 Capillary refill < 3 seconds rg5 Patient's skin is warm and dry. 19:10 Respiratory: Airway is patent Trachea midline Respiratory effort is even, Respiratory rg5 pattern is regular. GI: Abdomen is round non-distended. : No signs and/or symptoms were reported regarding the genitourinary system. EENT: No deficits noted. Derm: Skin is intact, Skin is normal, Skin temperature is warm. Musculoskeletal: Range of motion: intact in all extremities. Injury Description: Laceration sustained to palmar aspect of proximal phalanx of left thumb is clean, bleeding profusely. Vital Signs: 19:02 BP 181 / 87; Pulse 77; Resp 18; Temp 98.3(TE); Pulse Ox 99% on R/A; Weight 68.04 kg; tl4 Height 5 ft. 6 in. ; 19:27 BP 173 / 89; Pulse 77; Resp 17; Temp 98(O); Pulse Ox 99% on R/A; rg5 19:02 Body Mass Index 24.21 (68.04 kg, 167.64 cm) tl4 ED Course: 18:48 Patient arrived in ED. mg5 18:52 Ashley Willis FNP-C is [facility]. kb 18:52 Modesto Phillips MD is Attending Physician. kb 19:05 Attending Physician role handed off by Modesto Phillips MD rt 19:05 Elliot Hagan MD is Attending Physician. rt 19:08 Triage completed. tl4 19:10 Omar Damian, MATT is Primary Nurse. rg5 19:10 Patient has correct armband on for positive identification. Bed in low position. Call rg5 light in reach. 19:15 Arm band placed on right wrist. tl4 19:30 Assist provider with laceration repair on left hand Set up tray. Performed by Elliot rgFigueroa Hagan MD Dressed with 4X4s. 19:30 Patient did not have IV access during this emergency room visit. rg5 19:47 Hand Left 3 View XRAY In Process Unspecified. EDMS 20:05 Orthoglass splint: Thumb spica splint applied on left forearm. rg5 20:06 Wound care: to laceration located on palmar aspect of proximal phalanx of left thumb. rg5 20:18 Provided Education on: post er care. rg5 Administered Medications: 19:37 Drug: CeFAZolin IM 1 grams IM once Route: IM; Site: right gluteus; rg5 20:14 Follow up: Response: No adverse reaction rg5 19:37 Drug: Lidocaine Infiltration (1 %) 5 ml 5 ml Infiltration once; to bedside {Note: rg5 injected by provider.} Volume: 5 ml; Route: Infiltration; Medication: 19:10 VIS not applicable for this client. rg5 Outcome: 20:12 Discharge ordered by MD. rt 20:17 Discharged to home ambulatory, rg5 20:17 Condition: stable 20:17 Discharge instructions given to patient, Instructed on discharge instructions, follow up and referral plans. Demonstrated understanding of instructions, follow-up care, 20:18 Patient left the ED. rg5 Signatures: Dispatcher [employer] EDMS Ashley Willis FNP-C SEISMOGRAPH SUPERVISOR-Ckb Elliot Hagan MD MD rt Chanel Kirby mg5 Han Rolle, RN RN tl4 Omar Damian, RN RN rg5
[2024-03-31 20:23] VITALS: O2SAT 99
[2024-03-31 20:24] VITALS: BP 173/89; TEMP 98
== END 2024-03-31 20:18 | disposition home or self-care (01) ==
LOC: ER 18:42
DX: S56.322A Laceration of extensor or abductor muscles, fascia and tendons of left thumb at forearm level, initial encounter (principal); Z79.01 Long term (current) use of anticoagulants
CPT/HCPCS: 73130; 96372; 99284; 13131; J2001; J0690

== ENCOUNTER 2024-04-28 09:31 | Emergency (ER) | payer OTHER ==
[2024-04-28 10:30] LABS: Absolute Eosinophils 0.1 K/uL (0-0.5); Absolute Lymphocytes (CBC) 1.5 K/uL (0.7-4.9); Absolute Monocytes 0.7 K/uL (0.1-1.3); Absolute Neutrophil 7.4 K/uL (1.8-8.0); Basophils % 0.3 % (0-1.3); Eosinophils % 0.8 % (0-4.4); Hematocrit 34.4 % (39.6-49.0); Hemoglobin 11.9 g/dL (13.6-17.9); Lymphocytes % 15.6 % (15.3-44.8); MCH 34.5 pg (27.0-35.0); MCHC 34.6 g/dL (32.0-36.0); MPV 8.5 fL (7.6-11.3); Monocytes % 7.2 % (3.3-12.3); Neutrophils % 76.1 % (41.7-73.7); Nucleated Red Blood Cells % 0.3 % (0-0); Platelets 214 thou/uL (152-406); RBC Red Blood Cell Count 3.44 M/uL (4.33-5.43); Red Cell Distribution Width 13.5 % (12.1-15.2)
[2024-04-28] MEDS ORDERED: PIPERACIL/TAZO 3.375 GM VIAL IV ONE (10:38)
[2024-04-28] MEDS ORDERED: VANCOMYCIN 1 GM/VIAL ONE (10:38)
[2024-04-28] MEDS ORDERED: NA CHLORIDE 0.9% 100 ML ONE (10:38)
[2024-04-28] MEDS ORDERED: NA CHLORIDE 0.9% 250 ML ONE (10:38)
[2024-04-28] MEDS ORDERED: CLINDAMYCIN 600MG/D5W 50 ML IV ONE (10:40)
[2024-04-28 10:46] LABS: Albumin 4.2 g/dL (3.4-5.0); Albumin/Globulin Ratio 1.2 (1.1-1.8); Bilirubin Total 0.4 mg/dL (0.2-1.0); Globulin 3.5 g/dL (2.3-3.5); Protein, Total 7.7 g/dL (6.4-8.2)
--- NOTE | 2024-04-28 10:58 | ER ---
Nurse's Notes [facility] Name: Juan J Cyr Age: 64 yrs Sex: Male : 1960 Arrival Date: 04/28/2024 Time: 09:31 Bed 20 Private MD: Diagnosis: Postoperative bleeding Presentation: 04/28 09:42 Chief complaint: Patient states: Had surgery Monday in [place] for L thumb tendon ll1 repair. Has been bleeding for 2 days through splint. Coronavirus screen: Client denies travel out of the [place] in the last 14 days. At this time, the client does not indicate any symptoms associated with coronavirus-19. Ebola Screen: Patient denies travel to an Ebola-affected area in the 21 days before illness onset. Initial Sepsis Screen: Does the patient meet any 2 criteria? No. Patient's initial sepsis screen is negative. Does the patient have a suspected source of infection? No. Patient's initial sepsis screen is negative. Risk Assessment: Do you want to hurt yourself or someone else? Patient reports no desire to harm self or others. Onset of symptoms was April 27, 2024. 09:42 Method Of Arrival: Ambulatory ll1 09:42 Acuity: ALEKSANDAR 2 ll1 Triage Assessment: 09:44 General: Appears uncomfortable, Behavior is calm, cooperative, appropriate for age. ll1 Pain: Complains of pain in left hand Pain currently is 7 out of 10 on a pain scale. Quality of pain is described as aching. Musculoskeletal: Circulation, motion, and sensation intact. Swelling present in left hand site bleeding for 2 days Reports pain in left hand. Historical: - Allergies: 09:40 No Known Allergies; ll1 - PMHx: 09:40 Hypertensive disorder; Hypercholesterolemia; ll1 - PSHx: 09:40 Aortic valve replacement; R leg surgery; ll1 - Immunization history:: Adult Immunizations up to date. - Infectious Disease History:: Denies. - Social history:: Smoking status: Patient denies any tobacco usage or history of. Screenin:54 [facility] ED Fall Risk Assessment (Adult) History of falling in the last 3 months, kc6 including since admission No falls in past 3 months (0 pts) Confusion or Disorientation No (0 pts) Intoxicated or Sedated No (0 pts) Impaired Gait No (0 pts) Mobility Assist Device Used No (0 pt) Altered Elimination No (0 pt) Score/Fall Risk Level 0 - 2 = Low Risk Oriented to surroundings. Abuse screen: Denies threats or abuse. Denies injuries from another. Nutritional screening: No deficits noted. Tuberculosis screening: No symptoms or risk factors identified. Assessment: 09:40 Reassessment: assisted provider with removal of ortho glass splint of the LFA. pressure kc6 dressing applied with gauze and coban. 09:45 General: Appears in no apparent distress. comfortable, well groomed, well developed, kc6 Behavior is calm, cooperative, appropriate for age. Pain: Complains of pain in left hand Pain currently is 7 out of 10 on a pain scale. Neuro: Level of Consciousness is awake, alert, obeys commands, Oriented to person, place, time, situation, Appropriate for age. Cardiovascular: No deficits noted. Respiratory: Airway is patent Trachea midline Respiratory effort is even, unlabored, Respiratory pattern is regular, symmetrical. GI: No signs and/or symptoms were reported involving the gastrointestinal system. : No signs and/or symptoms were reported regarding the genitourinary system. EENT: No signs and/or symptoms were reported regarding the EENT system. Derm: Skin has blisters on the left hand Skin is dry, Skin is normal, Skin temperature is warm Wound noted left hand Wound is stitched together with erythema, swelling, sanguineous drainage and blistering Bruising that is dark purple, on left hand and left arm. Musculoskeletal: Capillary refill is > 3 seconds, in left fingers. Swelling present in left hand and left arm. 10:57 General: Dr to done by Dr Bowman. . me1 Vital Signs: 09:42 BP 175 / 91; Pulse 82; Resp 17; Pulse Ox 100% on R/A; Weight 68.04 kg; Height 5 ft. 6 ll1 in. ; Pain 7/10; 10:05 Temp 98.3(O); ll1 11:00 BP 175 / 73; Pulse 79; Resp 18; Pulse Ox 100% ; me1 11:45 BP 173 / 82; Pulse 77; Resp 16; Temp 98.3(O); Pulse Ox 100% ; me1 09:42 Body Mass Index 24.21 (68.04 kg, 167.64 cm) ll1 09:42 Pain Scale: Adult ll1 ED Course: 09:33 Patient arrived in ED. ra3 09:34 Brittany Qiu, MATT is Primary Nurse. kc6 09:34 Ashley Willis FNP-C is PHCP. kb 09:34 Kojo Bowman MD is Attending Physician. kb 09:34 Arm band placed on Patient placed in an exam room, on a stretcher. ll1 09:44 Triage completed. ll1 09:54 Patient has correct armband on for positive identification. Bed in low position. Call kc6 light in reach. Side rails up X 1. Pulse ox on. NIBP on. Door closed. Noise minimized. Lights dimmed. Pillow given. 09:54 Patient maintains SpO2 saturation greater than 95% on room air. kc6 10:01 Report given to Amita Draper RN. kc6 10:24 First set of blood cultures drawn by me, Second set of blood cultures drawn by me. em1 10:35 Rodrigo the traffic safety administrator pest control service sales agent for Dr. Wallace asks that we send the patient to [facility] at [address] [facility]. patient will be a direct admit to the facility/ Dr. Bowman has given report to Dr. Wallace so a nurse report is not needed/ Per Rodrigo this [facility] does not accept transfers , so this will be a direct admission so no MOT information was given/ MOT still filled out. 10:35 CMP Sent. em1 10:35 Blood Culture Adult (2) Sent. em1 10:36 Initial lab(s) drawn, by me, sent to lab. Inserted saline lock: 22 gauge in right em1 antecubital area, using aseptic technique. Blood collected. Flushed with 10 mL NS. 11:50 No provider procedures requiring assistance completed. Patient transferred, IV remains me1 in place. 11:51 Provided Education on: POC. Verbalized understanding.. me1 Administered Medications: 10:47 Drug: Clindamycin IVPB 300 mg IVPB once over 30 mins; (mix in 50 mL) Route: IVPB; me1 Infused Over: 30 mins; Site: right antecubital; 11:18 Follow up: Response: No adverse reaction; IV Status: Completed infusion; IV Intake: [id number] 11:19 Drug: Piperacillin-Tazobactam IVPB 3.375 grams IVPB once over 60 mins; (mix in NS 100 me1 mL) Route: IVPB; Infused Over: 60 mins; Site: left antecubital; 11:47 Follow up: Response: No adverse reaction; IV Status: Completed infusion me1 11:46 Drug: morphine IVP or IV 4 mg IVP once over 4 mins Route: IVP; Infused Over: 4 mins; me1 Site: right antecubital; 11:48 Follow up: Response: No adverse reaction; Pain is decreased me1 11:46 Drug: Ondansetron IVP 4 mg IVP once; over 2 minutes Route: IVP; Site: right antecubital;me1 11:48 Follow up: Response: No adverse reaction; Nausea is decreased me1 11:47 Drug: vancoMYCIN IVPB 1 grams IVPB once over 2 hrs Route: IVPB; Infused Over: 2 hrs; me1 Site: right antecubital; 11:49 Follow up: IV Status: Infusion continued upon transfer me1 Medication: 11:51 VIS not applicable for this client. me1 Intake: 11:18 IV: 50ml; Total: 50ml. me1 Outcome: 10:57 ER care complete, transfer ordered by . kb 11:52 Transferred by ground EMS Note: [facility] me1 11:52 Condition: stable 11:52 Instructed on the need for transfer, 11:54 Patient left the ED. me1 Signatures: Ashley Willis, ANALYST MICROBIOLOGY LAB-C ANALYST MICROBIOLOGY LAB-Harry Colón em1 Beata Bowles Deann dAame RN RN 1 Brittany Qiu RN RN 6 Amita Draper RN RN id1 Patricia Whyte ra3 Corrections: (The following items were deleted from the chart) 09:50 09:42 Acuity: ALEKSANDAR 3 ll1 ll1 11:03 10:35 Rodrigo the traffic safety administrator pest control service sales agent for Dr. Wallace asks that we send the patient to [facility] at [address] [place] [address]. patient will be a direct admit to the facility/ Dr. Bowman has given report to Dr. Wallace so a nurse report is not needed/
--- NOTE | 2024-04-28 10:58 | EDPHYS ---
Physician Documentation [facility] Name: Juan J Cyr Age: 64 yrs Sex: Male : 1960 Arrival Date: 04/28/2024 Time: 09:31 Bed 20 Private MD: ED Physician Kojo Bowman HPI: 04/28 10:43 This 64 yrs old Male presents to ER via Ambulatory with complaints of Post kb Sx:left thumb-bleeding. 10:43 Pt is a 64 year old male who presents for postop bleeding to left hand. States he had a kb tendon repair on Monday and noticed blood to his bandage starting yesterday. States there was a lot more bleeding today so he came in for evaluation. . Historical: - Allergies: 09:40 No Known Allergies; ll1 - PMHx: 09:40 Hypertensive disorder; Hypercholesterolemia; ll1 - PSHx: 09:40 Aortic valve replacement; R leg surgery; ll1 - Immunization history:: Adult Immunizations up to date. - Infectious Disease History:: Denies. - Social history:: Smoking status: Patient denies any tobacco usage or history of. ROS: 10:08 Constitutional: As per HPI kb Exam: 10:08 Constitutional: This is a well developed, well nourished patient who is awake, alert, kb and in no acute distress. Head/Face: Normocephalic, atraumatic. ENT: Moist Mucous membranes Cardiovascular: Regular rate Respiratory: Respirations even and unlabored. No increased work of breathing. Talking in full sentences Abdomen/GI: Soft, non-tender. No distention Neuro: Awake and alert, GCS 15, oriented to person, place, time, and situation. Moves all extremities. Normal gait. 10:42 Musculoskeletal/extremity: Extremities: grossly normal except: noted in the left hand kb and left forearm: pain, swelling, continuous oozing/dripping blood from surgical incision. Multiple blisters surrounding incision sites and to dorsal aspect of hand, ROM: limited active range of motion, decreased sensation, Vital Signs: 09:42 BP 175 / 91; Pulse 82; Resp 17; Pulse Ox 100% on R/A; Weight 68.04 kg; Height 5 ft. 6 ll1 in. ; Pain 01/23; 10:05 Temp 98.3(O); ll1 11:00 BP 175 / 73; Pulse 79; Resp 18; Pulse Ox 100% ; me1 11:45 BP 173 / 82; Pulse 77; Resp 16; Temp 98.3(O); Pulse Ox 100% ; me1 09:42 Body Mass Index 24.21 (68.04 kg, 167.64 cm) ll1 09:42 Pain Scale: Adult ll1 MDM: 09:34 Patient medically screened. kb 09:40 ED course: Pt presented with saturated surgical dressing. Discussed removing dressing kb with Dr Bowman prior to doing so to determine source of bleeding. Dressing removed to rule out arterial bleeding. Continuous bleeding from surgical incisions revealed with significant swelling and blistering. Dr Bowman called to bedside for evaluation as well. Recommends labs, IV antibiotics, and transfer to surgeon for further management. . 10:39 Differential diagnosis: postop bleeding, postop infection, compartment syndrome. Data kb reviewed: vital signs, nurses notes. 10:46 Counseling: I had a detailed discussion with the patient and/or guardian regarding the kb historical points, exam findings, and any diagnostic results supporting the discharge/admit diagnosis, lab results, the need to transfer to another facility, [facility] does not immediately have the required specialist, pt will be transferred back to [facility] in the [facility] to be seen by Dr Will Wallace. . 10:50 Consideration of Admission/Observation Escalation of care including kb admission/observation considered. pt will be transferred. 10:54 Management of patient was discussed with the following: Dr Will Wallace contacted initially and recommended dressing the hand and discharging pt home to follow up in office tomorrow. I discussed this with Dr Bowman, who agrees that pt should be seen sooner than tomorrow. Surgical site is still bleeding, has saturated the new pressure dressing that was applied. Dr Bowman called Dr Wallace to discuss the case as well. Dr Wallace accepts pt to the [facility] for evaluation. . 04/28 09:53 Order name: Blood Culture Adult (2) kb 04/28 09:53 Order name: CBC with Diff; Complete Time: 10:41 kb 04/28 09:53 Order name: CMP; Complete Time: 10:57 kb 04/28 09:53 Order name: IV Start; Complete Time: 10:35 kb Administered Medications: 10:47 Drug: Clindamycin IVPB 300 mg IVPB once over 30 mins; (mix in 50 mL) Route: IVPB; me1 Infused Over: 30 mins; Site: right antecubital; 11:18 Follow up: Response: No adverse reaction; IV Status: Completed infusion; IV Intake: [id number] 11:19 Drug: Piperacillin-Tazobactam IVPB 3.375 grams IVPB once over 60 mins; (mix in NS 100 me1 mL) Route: IVPB; Infused Over: 60 mins; Site: left antecubital; 11:47 Follow up: Response: No adverse reaction; IV Status: Completed infusion me1 11:46 Drug: morphine IVP or IV 4 mg IVP once over 4 mins Route: IVP; Infused Over: 4 mins; me1 Site: right antecubital; 11:48 Follow up: Response: No adverse reaction; Pain is decreased me1 11:46 Drug: Ondansetron IVP 4 mg IVP once; over 2 minutes Route: IVP; Site: right antecubital;me1 11:48 Follow up: Response: No adverse reaction; Nausea is decreased me1 11:47 Drug: vancoMYCIN IVPB 1 grams IVPB once over 2 hrs Route: IVPB; Infused Over: 2 hrs; me1 Site: right antecubital; 11:49 Follow up: IV Status: Infusion continued upon transfer me1 Disposition: 10:47 I agree with the assessment and plan of care. I reviewed the patient's care provided by 2 Advanced Practice Provider \T\ agree w/ the diagnosis \T\ care plan. I personally saw the pt \T\ performed a substantive portion of the visit, incldng all aspects of the (History/Exam/Medical Decision Making). 11:06 Patient with recent left thumb tendon repair approximately 48 hours ago. Patient with ec2 significant oozing and saturation of the dressing. Given the significant amount of bleeding, we decided to take off the dressing to further evaluate for arterial bleed and injury. Examination yields significant oozing through all suture sites with significant ecchymosis, overlying bulla, diminished sensation distally as well as tense forearm and significantly tense hand. Ultimately there does not appear to be a good place for direct compression to slow down the bleed so we decided to put a compression dressing which subsequently resaturated after several minutes. Initially Radha, SPINDLE REPAIRER, discussed the case with Dr. Will Wallace who wanted the patient to be discharged and follow-up outpatient the following day. I again discussed the case with Gerber, social insurance administrator on-call as well as Dr. Will Wallace who felt that the patient will be appropriate for outpatient evaluation however given the persistent saturation and quick rebleeding after just changing the dressing, my concern was for hemorrhage possibly eventually requiring blood transfusion and patient requiring more emergent need and evaluation today. I did not feel it was safe for the patient to be discharged with persistent bleeding without source control as he could decompensate and hemorrhage given the degree of bleeding. Additionally patient with significant swelling and ecchymosis with possible early compartment syndrome given the tense forearm and hand and diminished sensation. Additionally patient with bulla and recent procedure indicating possibly early necrotizing fasciitis. Ultimately patient is requiring EMS transfer given his persistent bleeding and potential for decompensation en route. Patient will be transferred to [facility]. We discussed the case with the social insurance administrator on-call, Gerber as well as Dr. Will Wallace which I provided direct handoff to. They had wanted us to discharge patient and not fill out a memorandum of transfer however patient certainly requires EMS services given the persistent bleeding and potential for decompensation en route. We have administrative approval from Gerber and discussed medical necessity with the patient and ultimately patient will be transferred for direct admission to their facility. Nursing updated regarding plan of care, patient updated regarding plan of care, rooming house inspector as well as charge nurse and ED director in agreement. Kojo Bowman MD. Disposition Summary: 04/28/24 10:57 Transfer Ordered Notes: Transfer Location: Other Acute Care Facility kb Reason: Higher level of care kb Condition: Stable kb Problem: new kb Symptoms: are unchanged kb Accepting Physician: Dr Will Wallace(04/28/24 11:54) me1 Diagnosis - Postoperative bleeding kb Forms: - Medication Reconciliation Form kb - SBAR form kb Signatures: Dispatcher [employer] Ashley Vega FNP-C FNP-Deann Najera RN RN ll1 Amita Draper RN RN me1 Kojo Bowman MD MD ec2 Corrections: (The following items were deleted from the chart) 09:53 09:53 BLOOD CULTURE*+BA.LAB.BRZ ordered. EDMS EDMS 09:53 09:53 CBC+H.LAB.BRZ ordered. EDMS EDMS 09:53 09:53 COMPREHENSIVE METABOLIC PANEL+C.LAB.BRZ ordered. EDMS EDMS 10:43 10:08 Constitutional: This is a well developed, well nourished patient who is awake, kb alert, and in no acute distress. Head/Face: Normocephalic, atraumatic. ENT: Moist Mucous membranes Cardiovascular: Regular rate Respiratory: Respirations even and unlabored. No increased work of breathing. Talking in full sentences Abdomen/GI: Soft, non-tender. No distention Neuro: Awake and alert, GCS 15, oriented to person, place, time, and situation. Moves all extremities. Normal gait. kb 11:54 10:57 Dr Will Wallace kb me1
[2024-04-28] MEDS ORDERED: MORPHINE 4 MG/ML SYR ONE (11:28)
[2024-04-28] MEDS ORDERED: ONDANSETRON 4 MG/2 ML VIAL ONE (11:28)
[2024-04-28 12:20] VITALS: TEMP 98.3
[2024-04-28 12:22] VITALS: O2SAT 100
[2024-04-28 12:25] VITALS: BP 173/82
== END 2024-04-28 11:54 ==
LOC: ER 09:31
DX: L76.22 Postprocedural hemorrhage of skin and subcutaneous tissue following other procedure (principal)
CPT/HCPCS: 87040 ×2; 85025; 36415; 80053; J2543; J2405; J7050